=== PATIENT | male | born 1960 | race Caucasian/White ===

== ENCOUNTER 2019-12-20 11:07 | Inpatient (IN) | payer OTHER, SELFPAY ==
[2019-12-20] VITALS (67 sets, daily range): BP systolic 104–177; BP diastolic 51–104; PULSE 66–90; RESP 7–20; TEMP 36.6–38; O2SAT 86–98
--- NOTE | 2019-12-20 11:44 | ED.GENADUL_ITS ---
Discharge Plan Disposition Patient Disposition: [facility]IENT Condition: Improving Discharge Details Chief Complaint: Headache Clinical Impression: Meningitis Primary Care Provider: Fer Forte ED Provider: Noel Jackson Home Meds and New Rx's Prescriptions: No Action No Known Home Meds RF: 0 Medical Decision Making 59-year-old male with no past medical history secondary to not seeing a doctor presents today for evaluation of headache. Patient states that 5 days ago the headache came on somewhat gradually during the evening. He describes it as pressure and pain in his head and the back of his head as well as his neck bilaterally. He has had what he describes as a subjective fever for the last 5 days as well. Pain is made worse with loud noises and movement of his neck. It is gradually worsened over the last 5 days. He denies any history of headache or having headache like this before. He also does admit to mild shortness of breath intermittently. Denies PE risk factors such as recent long car rides, immobilization, recent surgery, prior history of DVT or PE, family history of PE or DVT, morbid obesity, exogenous estrogen and, hemoptysis, history of cancer. The patient denies any headache red flags of thunderclap headache, concerning family history of polycystic kidney disease, Marfan syndrome, Malachi-Danlos syndrome, abdominal aortic aneurysm, aortic dissection, or intracranial aneurysm. He denies any other sick contacts at home. He denies any other modifying factors. He denies any chest tightness, arm neck or shoulder pain, history of cardiac disease. He denies any exertional chest discomfort. He denies any weakness, numbness, or tingling. He denies a vision changes. He denies any profuse vomiting or diarrhea. Physical exam demonstrates no neurologic deficits to speak of but does have vertical nystagmus without horizontal nystagmus which is atypical. Although he has pain and tenderness around the neck and head, he demonstrates no neck stiffness, no signs of nuchal rigidity, and a negative Kernig's and Brudzinski's. Differential seems less likely for intracranial aneurysm or mass with associated of the fever, and meningitis is certainly on the differential however it appears like an atypical presentation as he has a negative Kernig's and Brudzinski's on exam. He did take ibuprofen about 5 hours prior to arrival and is afebrile here. We will perform laboratory work-up, get imaging of the head before we decide on lumbar puncture. Check for other infectious etiologic agents like pneumonia or UTI. On an aside, patient was bitten his left hand by his dog, whose immunizations are up-to-date. His tetanus was updated in 2017. However evaluation of the hand at this time shows no redness swelling sausage shaped digits or signs of cellulitis. 2:42 PM Patient's laboratory work-up has returned, patient does have a white count of 13, left shift, mild hyponatremia, slightly low potassium, magnesium is 1.5. We will correct the magnesium and potassium we have given a liter fluid bolus. ESR and CRP are both elevated. proBNP is 592, does not show evidence of overt heart failure. Procalcitonin is elevated at 2.7. Lumbar puncture was performed and demonstrated notably cloudy fluids, no pus. Symptoms certainly concerning for meningitis. Antibiotics were started in conjunction with this, including vancomycin, 2 g of Rocephin, and 2 g of ampicillin. Urinalysis negative for evidence of infection, chest x-ray negative for evidence of infectious or abnormal etiology. CT scan of the head neck was also prior to lumbar puncture performed and negative for acute process abscess mass or other abnormality. I did contact the hospitalist Dr. Espinosa, after discussion with her she felt that admission would not be appropriate until an MRI is performed to rule out spinal epidural abscess. Influenza test negative. COVID test pending. I did discuss plus or minus on steroids, and at this time through shared decision making process together, will hold off on steroid administration. 5:11 PM Lumbar puncture results demonstrate WBC of 3233, RBCs of 69, glucose is 32, protein is 317, there is evidence of trace gram-negative rods. Less likely to be Neisseria meningitidis then. I did contact the patient's , and discussed the case with her multiple times in detail, including on the need for follow-up for prophylaxis. I offered her to come here to get that ordered follow-up with her PCP. She has now followed up with her PCP by this time of day, and the prescription has been written and she will get it in the morning at the pharmacy. The patient's and patient also did asked that I contact the patient's daughter, I will contact her as well. Still pending MRI results at this time. 6:50 PM MRI results have returned of the thoracic cervical spine and brain, no evidence of spinal epidural abscess. We will reach out to the hospitalist again who is now the night hospitalist and discussed the case with him. Patient remained stable, and ready for admission. 7 PM I have discussed the case with Dr. Moreira, he agrees with the assessment and plan. I have extensively reviewed the treatment plan with the patient. I have addressed all patient concerns at this time. I have also discussed the plan with the admitting physician and they agree with the current assessment and plan and have agreed to assume responsibility for the patient. All parties demonstrate verbal understanding and agreement with our assessment and plan at this time. Patient remained stable here in the ED. FINDINGS: Vertebrae: Limited sequences demonstrate preservation of vertebral body height throughout the thoracic spine with no acute fractures or significant subluxation detected. No significant marrow replacing lesions are detected involving the vertebral bodies or posterior elements of the thoracic spine. Spinal cord: No cord compression or intramedullary signal abnormalities are detected involving the thoracic cord and there is no evidence of epidural abscess or of abnormal cord or meningeal enhancement detected at thoracic levels. Discs/Spinal canal/Neural foramina: No significant disc disease. No significant spinal canal stenosis. Soft tissues: Unremarkable. IMPRESSION: Unremarkable limited enhanced MRI of the thoracic spine demonstrates no evidence of epidural abscess or other abnormal cord or meningeal enhancement at thoracic levels. Thank you for allowing us to participate in the care of your patient. Dictated and Authenticated by: Gaurang Ocasio MD 12/20/2019 6:36 PM Eastern Time ([place] & [place]) FINDINGS: Vertebrae: Limited sequences demonstrate preservation of vertebral body height throughout the cervical spine and no acute fractures or significant subluxations are detected. No significant marrow replacing lesions are detected involving the vertebral bodies or posterior elements at cervical levels. Spinal cord: Motion artifact limits anatomic detail with no cord compression or intramedullary signal abnormalities detected at cervical levels. There is no evidence of epidural abscess or of abnormal cord or meningeal enhancement seen at cervical levels. Discs/Spinal canal/Neural foramina: No posterior disc extrusions identified at cervical levels. No significant spinal canal stenosis or severe cord compression seen at any cerv ical level. Vasculature: Expected flow voids in the vertebral arteries. Soft tissues: Unremarkable. IMPRESSION: Unremarkable limited enhanced MRI of the cervical spine demonstrates no evidence of epidural abscess or other abnormal cord or meningeal enhancement at cervical levels. Thank you for allowing us to participate in the care of your patient. Dictated and Authenticated by: Gaurang Ocasio MD 12/20/2019 6:35 PM Eastern Time ([place] & [place]) FINDINGS: Brain: A few scattered STIR and T2 hyperintensities seen throughout the deep white matter of both cerebral hemispheres could reflect minimal microvascular ischemic change but are nonspecific. Postcontrast images demonstrate linear pial enhancement in the region of the right superior frontal sulcus and in the right central and precentral sulci in the posterior right frontal region (see images 19- 23 from series [id number]). Diffusion-weighted images show no evidence of acute infarct or other abnormal diffusion restriction and no other sites of abnormal intracranial enhancement are detected. Ventricles: Ventricular and cisternal spaces are normal in size and configuration and there is no midline shift or hydrocephalus detected. Bones/joints: Unremarkable. Sinuses: Frontoethmoid mucosal disease noted with other paranasal sinuses clear throughout. Mastoid air cells: Normal as visualized. No mastoid effusion. Orbits: Unremarkable. Soft tissues: Unremarkable. IMPRESSION: 1. Pial enhancement seen within sulci in the region of the right frontal lobe is concerning for meningitis. No intracranial abscess or other abnormal enhancement detected. 2. A few scattered STIR and T2 hyperintensities involving the white matter of both hemispheres could reflect microvascular ischemic changes of mild degree but are nonspecific. Thank you for allowing us to participate in the care of your patient. Dictated and Authenticated by: Gaurang Ocasio MD 12/20/2019 6:23 PM Eastern Time ([place] & [place]) HPI General Date/Time Provider Initiated Documentation: 12/20/19 11:17 . HPI Narrative: 59-year-old male with no past medical history secondary to not seeing a doctor presents today for evaluation of headache. Patient states that 5 days ago the headache came on somewhat gradually during the evening. He describes it as pressure and pain in his head and the back of his head as well as his neck bilaterally. He has had what he describes as a subjective fever for the last 5 days as well. Pain is made worse with loud noises and movement of his neck. It is gradually worsened over the last 5 days. He denies any history of headache or having headache like this before. He also does admit to mild shortness of breath intermittently. Denies PE risk factors such as recent long car rides, immobilization, recent surgery, prior history of DVT or PE, family history of PE or DVT, morbid obesity, exogenous estrogen and, hemoptysis, history of cancer. The patient denies any headache red flags of thunderclap headache, concerning family history of polycystic kidney disease, Marfan syndrome, Malachi-Danlos syndrome, abdominal aortic aneurysm, aortic dissection, or intracranial aneurysm. He denies any other sick contacts at home. He denies any other modifying factors. He denies any chest tightness, arm neck or shoulder pain, history of cardiac disease. He denies any exertional chest discomfort. He denies any weakness, numbness, or tingling. He denies a vision changes. He denies any profuse vomiting or diarrhea. Also of note the patient was bit 5 days ago on the left hand by his own dog. Whose shots and immunizations are up-to-date. That is healed well is only few scabs on the left hand. No redness inflammation or pain otherwise. Related Data Home Medications Medication Instructions Recorded Confirmed Unknown [No Known Home Meds] 08/31/12 12/20/19 Allergies Allergy/AdvReac Type Severity Reaction Status Date / Time No Known Allergies Allergy Unverified 12/20/19 12:01 Review of Systems All systems reviewed & are unremarkable except as noted in HPI and below PFSH Social History Smoking/Tobacco Use Status: Current every day Tobacco Type: cigarettes Drug use: Occasionally Substance use type: marijuana Do you feel safe at home: Yes Do you feel safe in your relationship?: Yes Exam Narrative Exam Narrative: 1.Const: Well-nourished, Well-developed, appearing stated age 2.Eyes: PERRL, no conjunctival injection, and symmetrical lids. Patient does have vertical nystagmus but no horizontal nystagmus. No deviation. 3.ENT: Atraumatic external nose and ears. Moist MM. Neck: Symmetric, trachea midline, No thyromegaly. Patient demonstrates good movement of cervical neck. There is no nuchal rigidity, however the patient does have tenderness in the neck on palpation. No nuchal tenderness. Patient is able to flex the neck without any difficulty but does have pain. Negative Kernig's and Brudzinski sign. 4.CVS: +S1/S2, No murmurs or gallops. Peripheral pulses 2+ and equal in all extremities. Brisk capillary refill in all extremities. 5.RESP: Unlabored respiratory effort. Clear to auscultation bilaterally. No wheezes rales or rhonchi 6.GI: Soft, Nontender/Nondistended, No hepatosplenomegaly. No guarding or rebound. 7.MSK: Normocephalic/Atraumatic, Extremities w/o deformity or ttp No cyanosis or clubbing, Normal movement of all extremities 8.Skin: Warm, Dry. No rashes or lesions. 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 Sensation grossly intact, no focal neurologic deficits. All 6 cardinal planes of vision are fully intact. No horizontal nystagmus but the patient does have vertical nystagmus. The patient demonstrated a normal rlkxop-olrz-pxwsda, good dexterity. There was no evidence of dysdiadochokinesia. Zuzf-nf-ygiq testing was normal. Sensation was intact bilaterally as well as muscle strength bilaterally for all extremities. Patient was able to verbalize butter cup with no slurring, or miss pronunciation. 10.Psych: (AAO) x3. Appropriate mood and affect Course Lab/Test Results Lab/Test Results: 12/20/19 11:41 Nasopharynx Influenza Types A,B Antigen - Pending 12/20/19 11:37 Blood Blood Culture - Pending 12/20/19 11:37 Blood Blood Culture - Pending Procedures Lumbar Puncture Time Out Performed: Yes Patient Position: left lateral decubitus Skin Prep: Povidone-Iodine 1% Local Anesthetic: Lidocaine 1% Amount of anesthesia used (mL): 3 Spinal Needle Gauge: 20G Interspace Used: L4-L5 Fluid Initially Obtained: cloudy Complications: none
[2019-12-20 12:00] LABS: Lactate 1.3 mmol/L (0.6-1.4)
[2019-12-20 12:03] LABS: Abs Immature Grans 0.05 10^3/uL (0.0-0.06); Absolute Basophil Count 0.03 10^3/uL (0.0-0.2); Absolute Lymphocyte Count 1.04 10^3/uL (1.2-3.4); Absolute Neutrophil Count 10.89 10^3/uL (1.2-6.7); Basophils % 0.2; HCT 35.5 % (40.0-50.0); HGB 12.3 g/dL (13.5-17.5); Immature Grans % 0.4; MCH 30.5 pg (27.0-33.0); MCHC 34.6 % (32.0-36.0); MCV 88.1 fL (80-95); MPV 10.9 fL (8.0-11.0); Monocytes % 7.7; Neutrophils % 83.7; Nucleated RBC 0 %; RBC 4.03 10^6/uL (4.36-5.78); RDW 12.5 % (11.8-14.1); RDW-SD 40.2 fL; WBC 13.01 10^3/uL (4.4-10.8)
[2019-12-20] MEDS: ACETAMINOPHEN 1,000 MG/100 ML BTL 400 MG IVPB ×2 (12:12→18:02)
[2019-12-20 12:13] LABS: Diff Comment PLT Morph Reviewed; Platelet Count 94 10^3/uL (130-400); RBC Morphology Normal
[2019-12-20 12:15] LABS: INR 0.9 (0.9-1.1); PTT Activated 28.7 sec (21.0-31.4)
[2019-12-20 12:17] LABS: ALT 40 U/L (16-63); AST 27 U/L (15-37); Albumin 3.1 g/dL (3.4-5.0); Alkaline Phosphatase 72 U/L (46-116); Anion Gap 8.2 mmol/L (3-11); BUN 12 mg/dL (7-18); Bilirubin, Total 0.4 mg/dL (0.2-1.0); CO2 26.8 mmol/L (21.0-32.0); CREATININE 0.76 mg/dL (0.70-1.30); Calcium 8.4 mg/dL (8.5-10.1); Chloride 94 mmol/L (98-107); Glucose 134 mg/dL (74-106); Potassium 3.2 mmol/L (3.5-5.1); Sodium 129 mmol/L (136-145); Total Protein 6.8 g/dL (6.4-8.2)
[2019-12-20 12:26] LABS: C-Reactive Protein 6.98 mg/dL (0.0-0.3); NT-proBNP 592 pg/mL (<300); Troponin I < 0.05 ng/mL (<0.06)
[2019-12-20 12:38] LABS: Magnesium 1.5 mg/dL (1.8-2.4)
[2019-12-20 12:39] LABS: Procalcitonin 2.7 ng/mL
[2019-12-20 12:40] LABS: ESR 27 mm/hr (1-20)
[2019-12-20 12:50] LABS: Bilirubin Negative (Negative); Blood Trace-intact (Negative); Clarity Clear (Clear); Glucose Negative (Negative); Ketones Negative (Negative); Leukocyte Esterase Negative (Negative); Nitrite Negative (Negative); Specific Gravity 1.025 (1.005-1.025)
[2019-12-20] MEDS: POTASSIUM CHLORIDE 20 MEQ/100 ML BAG 50 MEQ IVPB (12:54)
[2019-12-20] MEDS: Ondansetron 4 MG/2 ML VIAL (12:55)
[2019-12-20 13:01] LABS: Epithelial Cells Few HPF (Negative); WBC 0-2 HPF (0-5)
[2019-12-20 13:02] LABS: Bacteria Negative HPF (Negative); C & S Indicated? No; Casts 3-5 Fine Granular LPF (Negative); Crystals Negative HPF (Negative); Mucus Negative (Negative)
[2019-12-20] MEDS: Omnipaque 350 MG/ML 100 ML BTL IJ (13:14)
[2019-12-20] MEDS: Normal Saline - Diluent 50 ML VIAL IV (13:14)
--- NOTE | 2019-12-20 13:25 | DI.RAD_ITS ---
EXAM: XR CHEST 2V PA LATERAL CLINICAL HISTORY: cough, fever TECHNIQUE: 2D digital imaging was performed. COMPARISON: No exams were available for comparison FINDINGS: MEDIASTINUM: Normal. HEART: Normal. PULMONARY VASCULATURE: Normal. LUNGS: Clear. PLEURAL SPACE: No pleural effusion or pneumothorax. BONE:Within normal limits for the patient's age. OTHER FINDINGS:Normal. IMPRESSION: No acute pulmonary findings. DATA REPOSITORY: RADIATION DOSE DELIVERED:
--- NOTE | 2019-12-20 13:25 | DI.CT_ITS ---
EXAM: CT BRAIN NECK CTA CLINICAL HISTORY: fever, headache, vertical nystagmus. TECHNIQUE: Imaging Protocol: Axial CT angiography was performed with multi-slice acquisition and mu lti-planar and/or 3D reconstructions. CONTRAST MATERIAL: Intravenous: Omnipaque 350 Contrast volume:85 mL COMPARISON: No exams were available for comparison FINDINGS: CT Head W/O: Ventricles and Extra axial spaces: Normal in size and morphology for the patient's age. Hemorrhage: None. Cerebral parenchyma: Normal. Midline shift: None. Brainstem/Cerebellum: Normal. Calvarium: Normal. Visualized Paranasal sinuses/Mastoids: Opacification of a few ethmoid air cells. Otherwise, the visu alized paranasal sinuses and mastoid air cells are clear. Soft Tissues: Unremarkable. CTA Brain W: Internal Carotid Arteries: Petrous: Normal. Cavernous: Normal. Cerebral: Normal. Anterior Cerebral Arteries: Right: No aneurysm, occlusion or significant stenosis. Left: No aneurysm, occlusion or significant stenosis. Middle Cerebral Arteries: Right: No aneurysm, occlusion or significant stenosis. Left: No aneurysm, occlusion or significant stenosis. Posterior cerebral Arteries: Right: No aneurysm, occlusion or significant stenosis. Left: No aneurysm, occlusion or significant stenosis. Arises primarily from the posterior communicat ing artery which is a normal variant. Vertebral Arteries: Right: No aneurysm, occlusion or significant stenosis. Left: No aneurysm, occlusion or significant stenosis. Basilar Artery: No aneurysm, occlusion or significant stenosis. CTA Neck W: Common Carotid: Right: No aneurysm, occlusion or significant stenosis. Left: No aneurysm, occlusion or significant stenosis. External Carotid: Right: No aneurysm, occlusion or significant stenosis. Left: No aneurysm, occlusion or significant stenosis. Internal Carotid: Right: No aneurysm, occlusion or significant stenosis. Left: No aneurysm, occlusion or significant stenosis. Vertebral Artery: Right: No aneurysm, occlusion or significant stenosis. Left: No aneurysm, occlusion or significant stenosis. Lung Apices: Normal. Bones: Mild degenerative changes in the cervical spine. Soft Tissues: Normal. IMPRESSION: 1. Normal CTA examination of the [place]. 2. No acute intracranial process. 3. Normal CTA examination of the neck. RADIATION DOSE DELIVERED: 1,176.17mGy.cm Total DLP DATA REPOSITORY: All CT scans at this facility are submitted to the National Radiology Data Registry (NRDR) Dose Index Registry (DIR) with the [employer] (ACR). RADIATION OPTIMIZATION: All CT scans at this facility use at least one of these dose optimization te chniques: automated exposure control; mA and/or kV adjustment per patient size (includes targeted exa ms where dose is matched to clinical indication); or iterative reconstruction.
--- NOTE | 2019-12-20 14:15 | DI.MRI_ITS ---
EXAM: MR BRAIN WO/W CLINICAL HISTORY: neck pain and headache TECHNIQUE: Multiplanar multisequence MRI of the brain was performed. CONTRAST MATERIAL: IV Contrast: 15 ML of Dotarem contrast administered. COMPARISON: CT CT BRAIN NECK CTA from 12/20/2019 FINDINGS: VENTRICLES AND EXTRA AXIAL SPACES: Normal in size and morphology for the patient's age. HEMORRHAGE: None. CEREBRAL PARENCHYMA: No focus of restricted diffusion to suggest acute infarct. No space-occupying le lyudmila identified. There are foci of hyperintense signal on the T2 and FLAIR images in the white matter likely reflecting microvascular ischemic change. MIDLINE SHIFT: None. BRAINSTEM/CEREBELLUM: Normal. CALVARIUM: Normal. ENHANCEMENT: Linear pial enhancement in the region of the right frontal lobe is noted. No focal flui d collection is seen to suggest an abscess. VISUALIZED PARANASAL SINUSES/MASTOIDS: Clear. [place]: Normal flow void. PITUITARY GLAND: Unremarkable. OTHER FINDINGS: IMPRESSION: 1. Pial enhancement seen in the sulci in the right frontal lobe concerning for meningitis. No intrac ranial abscess or other abnormal enhancement is identified. 2. Nonspecific hyperintensities which likely reflecting microvascular ischemic disease. DATA REPOSITORY:
--- NOTE | 2019-12-20 14:25 | DI.MRI_ITS ---
EXAM: MR CERVICAL SPINE WO/W CLINICAL HISTORY: neck pain and headache TECHNIQUE: Multiplanar multisequence MRI of the cervical spine was performed. CONTRAST MATERIAL: IV Contrast: 15 ML of Dotarem contrast administered. COMPARISON: CT CT BRAIN NECK CTA from 12/20/2019 FINDINGS: This is a limited within without MRI of the cervical spine. Patient motion artifact is present. BONES: Vertebral body heights are maintained. Intervertebral disc spaces are normal. Alignment is nor mal. Bone marrow signal intensity is within normal limits. CERVICAL CORD: Craniovertebral junction is unremarkable. The cervical cord is normal size and signal intensity. No lesion is present. SOFT TISSUES: Unremarkable. ENHANCEMENT: No suspicious enhancement identified. No evidence of an epidural abscess or meningeal e nhancement is seen at the cervical levels. C2-3: No disc herniation or bulge is identified. No significant central spinal canal or neural forami nal stenosis. C3-4: No disc herniation or bulge is identified. No significant central spinal canal or neural forami nal stenosis C4-5: No disc herniation or bulge is identified. No significant central spinal canal or neural forami nal stenosis C5-6: No disc herniation or bulge is identified. No significant central spinal canal or neural forami nal stenosis C6-7: No disc herniation or bulge is identified. No significant central spinal canal or neural forami nal stenosis C7-T1: No disc herniation or bulge is identified. No significant central spinal canal or neural ethan inal stenosis IMPRESSION: Unremarkable enhanced MRI of the cervical spine. No evidence of epidural abscess, abnormal cord sign al or meningeal enhancement at the cervical level is seen. DATA REPOSITORY:
[2019-12-20] MEDS: cefTRIAXone 2 GM/50 ML BAG IVPB (14:37)
[2019-12-20 14:49] LABS: Glucose (CSF) 32 mg/dL (40-70)
[2019-12-20 14:51] LABS: Total Protein (CSF) 317 mg/dL (15-45)
[2019-12-20] MEDS: AMPICILLIN SODIUM 2 GM in Normal Saline 100 ML IVPB ×2 (15:19→21:49)
[2019-12-20 15:24] LABS: Troponin I < 0.05 ng/mL (<0.06)
[2019-12-20 15:28] LABS: Clarity Cloudy; Tube # 4; Xanthochromia Absent
[2019-12-20 15:29] LABS: Lymphocytes CSF 1 % (40-80); Monocyte/Macrophage CSF 19 % (15-45)
[2019-12-20 15:30] LABS: Neutrophils CSF 80 % (0-6); RBC 69 /mm3 (0-5)
--- NOTE | 2019-12-20 15:30 | DI.MRI_ITS ---
EXAM: MR THORACIC SPINE WO/W CLINICAL HISTORY: r/o abscess. TECHNIQUE: Multiplanar multisequence MRI of the Thoracic spine was performed. CONTRAST MATERIAL: IV Contrast: 15 mL of Dotarem contrast administered. COMPARISON: CR XR CHEST 2V PA LATERAL from 12/20/2019 FINDINGS: This is a limited pre and postcontrast examination of the thoracic spine. Bones: The vertebral body heights are well maintained. Alignment is satisfactory. The signal characte ristics are unremarkable. Cord: The thoracic cord is normal size and signal intensity. No intrinsic cord lesion is present. The re is no evidence of an epidural abscess or meningeal enhancement detected at the thoracic levels. Discs: No disc herniation or bulge is present. Soft tissues: Normal. There is no evidence of suspicious enhancement. IMPRESSION: Unremarkable enhanced MRI of the thoracic spine. No evidence of an epidural abscess, abnormal cord si gnal or meningeal enhancement at the thoracic level. DATA REPOSITORY:
[2019-12-20 15:31] LABS: WBC 3233 /uL (0-5)
[2019-12-20 15:43] LABS: RBC Tube#1 CSF 114 /mm3 (0-5)
[2019-12-20] MEDS: VANCOMYCIN 1,500 MG in Normal Saline 500 ML 333.3333 MG IVPB (15:45)
--- NOTE | 2019-12-20 16:56 | NUR.NOTE ---
Nursing Note:1150 NS 1 Liter started wo IV VVO Dr. Jackson to Ivania Mckeon RN
--- NOTE | 2019-12-20 17:35 | NUR.NOTE ---
pt is in the MRI anticipate placing him in rm 6 on the return to the ER. he will also be medicated as orderd Nursing Note:
[2019-12-20] MEDS: Gadoterate meglumine 20 ML VIAL 15 ML IVP (17:55)
[2019-12-20] MEDS: Normal Saline Flush 10 ML SYR IVP (17:55)
--- NOTE | 2019-12-20 18:24 | DI.VRAD_ITS ---
Addendum created by Gaurang Ocasio MD on 12/20/2019 6:23:40 PM EDT: THIS REPORT CONTAINS FINDINGS THAT MAY BE CRITICAL TO PATIENT CARE. The findings were verbally communicated via telephone conference with MELODY MOE at 6:23 PM EDT on 12/20/2019. The findings were acknowledged and understood. Initial report created on 12/20/2019 6:23:29 PM EDT: PROCEDURE INFORMATION: Exam: MR Head Without and With Contrast Exam date and time: 12/20/2019 5:57 PM Age: 59 years old Clinical indication: Other: Neck pain, ELIAS; Patient HX: Meningitis TECHNIQUE: Imaging protocol: MR of the head without and with intravenous contrast. 3D rendering (Not supervised by radiologist): MIP and/or 3D reconstructed images were created by the technologist. Contrast material: DOTAREM; Contrast volume: 15 ml; Contrast route: INTRAVENOUS (IV); COMPARISON: CT BRAIN NECK CTA 12/20/2019 1:14 PM FINDINGS: Brain: A few scattered STIR and T2 hyperintensities seen throughout the deep white matter of both cerebral hemispheres could reflect minimal microvascular ischemic change but are nonspecific. Postcontrast images demonstrate linear pial enhancement in the region of the right superior frontal sulcus and in the right central and precentral sulci in the posterior right frontal region (see images 19-23 from series [id number]). Diffusion-weighted images show no evidence of acute infarct or other abnormal diffusion restriction and no other sites of abnormal intracranial enhancement are detected. Ventricles: Ventricular and cisternal spaces are normal in size and configuration and there is no midline shift or hydrocephalus detected. Bones/joints: Unremarkable. Sinuses: Frontoethmoid mucosal disease noted with other paranasal sinuses clear throughout. Mastoid air cells: Normal as visualized. No mastoid effusion. Orbits: Unremarkable. Soft tissues: Unremarkable. IMPRESSION: 1. Pial enhancement seen within sulci in the region of the right frontal lobe is concerning for meningitis. No intracranial abscess or other abnormal enhancement detected. 2. A few scattered STIR and T2 hyperintensities involving the white matter of both hemispheres could reflect microvascular ischemic changes of mild degree but are nonspecific. Dictated and Authenticated by: Gaurang Ocasio MD. Ordering:BETHEL Cohen MD
--- NOTE | 2019-12-20 18:35 | DI.VRAD_ITS ---
PROCEDURE INFORMATION: Exam: MR Cervical Spine Without and With Contrast Exam date and time: 12/20/2019 5:57 PM Age: 59 years old Clinical indication: Other: Neck pain, ELIAS; Patient HX: Meningitis TECHNIQUE: Imaging protocol: Multiplanar magnetic resonance images of the cervical spine without and with intravenous contrast. Contrast material: DOTAREM; Contrast volume: 15 ml; Contrast route: INTRAVENOUS (IV); COMPARISON: CT BRAIN NECK CTA 12/20/2019 1:14 PM FINDINGS: Vertebrae: Limited sequences demonstrate preservation of vertebral body height throughout the cervical spine and no acute fractures or significant subluxations are detected. No significant marrow replacing lesions are detected involving the vertebral bodies or posterior elements at cervical levels. Spinal cord: Motion artifact limits anatomic detail with no cord compression or intramedullary signal abnormalities detected at cervical levels. There is no evidence of epidural abscess or of abnormal cord or meningeal enhancement seen at cervical levels. Discs/Spinal canal/Neural foramina: No posterior disc extrusions identified at cervical levels. No significant spinal canal stenosis or severe cord compression seen at any cervical level. Vasculature: Expected flow voids in the vertebral arteries. Soft tissues: Unremarkable. IMPRESSION: Unremarkable limited enhanced MRI of the cervical spine demonstrates no evidence of epidural abscess or other abnormal cord or meningeal enhancement at cervical levels. Dictated and Authenticated by: Gaurang Ocasio MD. Ordering:BETHEL Cohen MD
--- NOTE | 2019-12-20 18:36 | DI.VRAD_ITS ---
PROCEDURE INFORMATION: Exam: MR Thoracic Spine Without and With Contrast Exam date and time: 12/20/2019 5:57 PM Age: 59 years old Clinical indication: Other: Neck pain, ELIAS, meningitis TECHNIQUE: Imaging protocol: Multiplanar magnetic resonance images of the thoracic spine without and with intravenous contrast. Contrast material: DOTAREM; Contrast volume: 15 ml; Contrast route: INTRAVENOUS (IV); COMPARISON: No relevant prior studies available. FINDINGS: Vertebrae: Limited sequences demonstrate preservation of vertebral body height throughout the thoracic spine with no acute fractures or significant subluxation detected. No significant marrow replacing lesions are detected involving the vertebral bodies or posterior elements of the thoracic spine. Spinal cord: No cord compression or intramedullary signal abnormalities are detected involving the thoracic cord and there is no evidence of epidural abscess or of abnormal cord or meningeal enhancement detected at thoracic levels. Discs/Spinal canal/Neural foramina: No significant disc disease. No significant spinal canal stenosis. Soft tissues: Unremarkable. IMPRESSION: Unremarkable limited enhanced MRI of the thoracic spine demonstrates no evidence of epidural abscess or other abnormal cord or meningeal enhancement at thoracic levels. Dictated and Authenticated by: Gaurang Ocasio MD. Ordering:BETHEL Cohen MD
[2019-12-20] MEDS: Dexamethasone 10 MG/ML VIAL IVP (19:32)
--- NOTE | 2019-12-20 20:27 | HPE_ITS ---
Date of service: 12/20/19 Time of Service: 20:28 Assessment and Plan Assessment and plan (1) Meningitis: Status: Acute Assessment and plan: Continue IV vancomycin at a dose of 15-20 mg/kg IV every 8-12 hours (will request pharmacist to dose and monitor trough levels), ceftriaxone 2 g IV every 12 hours, ampicillin 2 g IV every 4 hours pending final identification and sensitivity of his CSF culture. Based on the Gram stain of gram-negative rods is most likely going to be a Haemophilus influenza however we will continue current empiric treatment pending final identification and sensitivity results. Initially I was inclined to give him corticosteroids based on recommendations from [place] guidelines however patient has already received his initial antibiotic treatment Current guidelines do not recommend corticosteroids once antibiotics have been started. (2) Hyponatremia: Status: Acute Assessment and plan: We will give normal saline IV fluid along with potassium supplementation and magnesium supplementation (3) Hypomagnesemia: Status: Acute Assessment and plan: We will treat with parenteral magnesium recheck levels in the morning. (4) Hypokalemia: Status: Acute Assessment and plan: Replete with IV and oral potassium. Check levels in the morning History of Present Illness History of Present Illness Chief Complaint: headache, fever Narrative: 59-year-old male with no past medical history presents emergency department this morning with complaints of headache and neck ache along with subjective feeling of fevers for the last 5 days. Headache and neck ache started out gradually is gotten progressively worse and is been exacerbated by loud noises or movement of his neck. Evaluation emergency department included a CTA of his head and neck as well as routine labs and subsequently underwent lumbar puncture as well as MRI of the brain and cervical and thoracic spine. In summary he was diagnosed with bacterial meningitis with a Gram stain of his LP showing gram-negative rods. Patient was treated with ceftriaxone 2 g IV along with ampicillin 2 g IV and vancomycin 1.5 g IV. Blood cultures were obtained as well as cerebrospinal fluid cultures were sent and nasal pharyngeal swab for influenza and COVID-19 were obtained. Influenza swab was negative. Blood cultures and CSF cultures are pending at this time as is his COVID-19 test. Routine labs included a white count of 13,000 with a leftward shift including 10,000 neutrophils and an ESR of 27 with a CRP of 6.9. CMP was remarkable for hyponatremia with a sodium of 129 a potassium level 3.2 and a magnesium level 1.5. LFTs were normal. BUN and creatinine were normal at 12 and 0.76. Procalcitonin level was high at 2.7. CSF fluid was cloudy and colorless with 3200 white cells, 114 RBCs on the first sample and 69 RBCs on the final sample with a low CSF glucose of 32 and a high CSF protein of 317. Gram stain of the CSF showed many white blood cells and initially was reported as no bacteria seen but modified to indicate rare gram-negative rods. Subsequent MRI imaging of the brain cervical and thoracic spine was obtained in the MRI of the cervical and thoracic spine were unremarkable whereas the MRI of the brain showed enhancement of the toshia matter within the sulci in the region of the frontal right lobe concerning for meningitis but no intracranial abscess was seen. There are few scattered hyperintensities involving the white matter of both hemispheres that are nonspecific but possibly reflecting microvascular ischemic changes. Patient is now admitted for empiric treatment of bacterial meningitis. Reportedly there were no ill contacts. His was notified of his diagnosis by the emergency room attending who is document that his is received prophylactic antibiotic through her PCP. Review of Systems Constitutional Constitutional: Reports body ache(s), Reports chills, Reports fever(s) and Reports headache(s) Eyes Eyes: Reports other (Photophobia) ENT Ears, Nose, Mouth, and Throat: Reports headache(s) Cardiovascular Cardiovascular: Reports system reviewed and no additional complaints, except as documented Respiratory Respiratory: Reports system reviewed and no additional complaints, except as documented Gastrointestinal Gastrointestinal: Reports diarrhea Genitourinary Genitourinary: Reports system reviewed and no additional complaints, except as documented Musculoskeletal Musculoskeletal: Reports myalgias and Reports other (Neck pain) Integumentary/Breasts Skin/Breast: Reports system reviewed and no additional complaints, except as documented Neurologic Neurologic: Reports headache(s) Endocrine Endocrine: Reports system reviewed and no additional complaints, except as documented Hematologic/Lymphatic Hematologic/Lymphatic: Reports system reviewed and no additional complaints, except as documented Allergic/Immunologic Allergic/Immunologic: Reports system reviewed and no additional complaints, except as documented [facility] Social History Smoking/Tobacco Use Status: Current every day Tobacco Type: cigarettes Drug use: Occasionally Substance use type: marijuana Do you feel safe at home: Yes Do you feel safe in your relationship?: Yes Meds Home Medications and Allergies Home Medications Medication Instructions Recorded Confirmed Type Unknown [No Known Home Meds] 08/31/12 12/20/19 History Allergies Allergy/AdvReac Type Severity Reaction Status Date / Time No Known Allergies Allergy Unverified 12/20/19 12:01 Exam Narrative Exam Narrative: Middle-age male who appears to be toxic, alert and oriented x3 Neck is supple but tender with pain on range of motion testing, no cervical adenopathy no meningismus Lungs are clear to auscultation Heart is regular rate and rhythm without murmur rub or gallop Abdomen soft normal active bowel sounds no palpable masses no bruits Upper extremities left hand with a couple small red punctate mcdonald from where his dog bit him last week however there is no erythema or induration and no purulent drainage over the mcdonald. Lower extremities without peripheral cyanosis or edema Neurologic exam he is alert and oriented x3 no facial asymmetry normal facial mimetic muscle movement. Extraocular motions intact no nystagmus pupils equally round and reactive to light and accommodation Normal range of motion strength in upper and lower extremities. No cervical tenderness with straight leg raising Results Labs Result diagrams: 12/20/19 11:40 12/20/19 11:40 Labs: Laboratory Results - last 24 hr 12/20/19 12/20/19 12/20/19 11:40 11:40 11:40 WBC 13.01 H RBC 4.03 L Hgb 12.3 L Hct 35.5 L MCV 88.1 MCH 30.5 MCHC 34.6 RDW 12.5 Plt Count 94 L MPV 10.9 Immature Gran % 0.4 Neutrophils % 83.7 Lymphocytes % 8.0 Monocytes % 7.7 Eosinophils % 0.0 Basophils % 0.2 Nucleated RBC % 0 Absolute Neutrophils 10.89 H Absolute Lymphocytes 1.04 L Absolute Monocytes 1.00 H Absolute Eosinophils 0.00 Absolute Basophils 0.03 RBC Morphology Normal Xanthochromia ESR 27 H PT INR APTT VBG Lactate 1.3 Sodium Potassium Chloride Carbon Dioxide Anion Gap BUN Creatinine Estimated GFR/1.73 m2 Glucose Calcium Magnesium Total Bilirubin AST ALT Alkaline Phosphatase Troponin I < 0.05 C-Reactive Protein 6.98 H NT-Pro-B Natriuret Pep 592 H Total Protein Albumin Procalcitonin 2.7 Urine Color Urine Clarity Urine pH Ur Specific [place] Urine Protein Urine Ketones Urine Blood Urine Nitrite Urine Bilirubin Urine Urobilinogen Ur Leukocyte Esterase Urine RBC Urine WBC Ur Epithelial Cells Urine Crystals Urine Bacteria Urine Casts Urine Mucus Ur Culture Indicated? Urine Glucose CSF Tube Number CSF Color CSF Clarity CSF WBC CSF RBC CSF RBC (1) CSF Neutrophils % CSF Lymphocytes % CSF Monos/Macrophage % CSF Glucose CSF Total Protein 12/20/19 12/20/19 12/20/19 11:40 11:40 11:40 WBC RBC Hgb Hct MCV MCH MCHC RDW Plt Count MPV Immature Gran % Neutrophils % Lymphocytes % Monocytes % Eosinophils % Basophils % Nucleated RBC % Absolute Neutrophils Absolute Lymphocytes Absolute Monocytes Absolute Eosinophils Absolute Basophils RBC Morphology Xanthochromia ESR PT 9.0 L INR 0.9 APTT 28.7 VBG Lactate Sodium 129 L Potassium 3.2 L Chloride 94 L Carbon Dioxide 26.8 Anion Gap 8.2 BUN 12 Creatinine 0.76 Estimated GFR/1.73 m2 >= 60.00 Glucose 134 H Calcium 8.4 L Magnesium 1.5 L Total Bilirubin 0.4 AST 27 ALT 40 Alkaline Phosphatase 72 Troponin I C-Reactive Protein NT-Pro-B Natriuret Pep Total Protein 6.8 Albumin 3.1 L Procalcitonin Urine Color Urine Clarity Urine pH Ur Specific [place] Urine Protein Urine Ketones Urine Blood Urine Nitrite Urine Bilirubin Urine Urobilinogen Ur Leukocyte Esterase Urine RBC Urine WBC Ur Epithelial Cells Urine Crystals Urine Bacteria Urine Casts Urine Mucus Ur Culture Indicated? Urine Glucose CSF Tube Number CSF Color CSF Clarity CSF WBC CSF RBC CSF RBC (1) CSF Neutrophils % CSF Lymphocytes % CSF Monos/Macrophage % CSF Glucose CSF Total Protein 12/20/19 12/20/19 12/20/19 12:25 14:10 14:10 WBC RBC Hgb Hct MCV MCH MCHC RDW Plt Count MPV Immature Gran % Neutrophils % Lymphocytes % Monocytes % Eosinophils % Basophils % Nucleated RBC % Absolute Neutrophils Absolute Lymphocytes Absolute Monocytes Absolute Eosinophils Absolute Basophils RBC Morphology Xanthochromia Absent ESR PT INR APTT VBG Lactate Sodium Potassium Chloride Carbon Dioxide Anion Gap BUN Creatinine Estimated GFR/1.73 m2 Glucose Calcium Magnesium Total Bilirubin AST ALT Alkaline Phosphatase Troponin I C-Reactive Protein NT-Pro-B Natriuret Pep Total Protein Albumin Procalcitonin Urine Color Yellow Urine Clarity Clear Urine pH 6.0 Ur Specific [place] 1.025 Urine Protein 100 H Urine Ketones Negative Urine Blood Trace-intact H Urine Nitrite Negative Urine Bilirubin Negative Urine Urobilinogen 1.0 H Ur Leukocyte Esterase Negative Urine RBC 3-5 H Urine WBC 0-2 Ur Epithelial Cells Few Urine Crystals Negative Urine Bacteria Negative Urine Casts 3-5 fine granular Urine Mucus Negative Ur Culture Indicated? No Urine Glucose Negative CSF Tube Number 4 CSF Color Colorless CSF Clarity Cloudy CSF WBC 3233 H* CSF RBC 69 H CSF RBC (1) 114 H CSF Neutrophils % 80 H CSF Lymphocytes % 1 L CSF Monos/Macrophage % 19 CSF Glucose 32 L CSF Total Protein 12/20/19 12/20/19 14:10 15:00 WBC RBC Hgb Hct MCV MCH MCHC RDW Plt Count MPV Immature Gran % Neutrophils % Lymphocytes % Monocytes % Eosinophils % Basophils % Nucleated RBC % Absolute Neutrophils Absolute Lymphocytes Absolute Monocytes Absolute Eosinophils Absolute Basophils RBC Morphology Xanthochromia ESR PT INR APTT VBG Lactate Sodium Potassium Chloride Carbon Dioxide Anion Gap BUN Creatinine Estimated GFR/1.73 m2 Glucose Calcium Magnesium Total Bilirubin AST ALT Alkaline Phosphatase Troponin I < 0.05 C-Reactive Protein NT-Pro-B Natriuret Pep Total Protein Albumin Procalcitonin Urine Color Urine Clarity Urine pH Ur Specific [place] Urine Protein Urine Ketones Urine Blood Urine Nitrite Urine Bilirubin Urine Urobilinogen Ur Leukocyte Esterase Urine RBC Urine WBC Ur Epithelial Cells Urine Crystals Urine Bacteria Urine Casts Urine Mucus Ur Culture Indicated? Urine Glucose CSF Tube Number CSF Color CSF Clarity CSF WBC CSF RBC CSF RBC (1) CSF Neutrophils % CSF Lymphocytes % CSF Monos/Macrophage % CSF Glucose CSF Total Protein 317 H Last Vital Signs Temp 36.6 C 12/20/19 19:47 Pulse 74 12/20/19 19:47 Resp 16 12/20/19 19:47 BP 130/82 12/20/19 19:47 Pulse Ox 95 12/20/19 19:47 COVID-19 Screening Have you,or household,traveled outside [place] in last 14 days?: No Had IN PERSON contact w/suspected or confirmed C-19 person: No
[2019-12-20] MEDS: POTASSIUM CHLORIDE/0.9% NACL 1,000 ML 150 MEQ IV (20:58)
[2019-12-20] MEDS: Potassium Chloride 20 MEQ TABCR 40 MEQ PO (21:22)
[2019-12-20] MEDS: MAGNESIUM SULFATE 4 GM/100 ML BAG IVPB (21:27)
[2019-12-20] MEDS: HYDROmorphone 2 MG/ML VIAL IVP ×2 (21:47→23:42)
[2019-12-20] MEDS: Ondansetron 4 MG/2 ML VIAL IVP (21:47)
[2019-12-20] MEDS: Acetaminophen 325 MG TAB PO (23:42)
[2019-12-21] VITALS (19 sets, daily range): BP systolic 114–167; BP diastolic 69–103; PULSE 63–96; RESP 12–18; TEMP 36.5–38; O2SAT 93–98
[2019-12-21] MEDS: Nicotine 21 MG/24 HR PATCH TD (00:44)
[2019-12-21] MEDS: Benzonatate 200 MG CAP PO (00:44)
[2019-12-21] MEDS: AMPICILLIN SODIUM 2 GM in Normal Saline 100 ML IVPB ×3 (00:54→10:14)
[2019-12-21] MEDS: HYDROmorphone 2 MG/ML VIAL IVP ×6 (02:07→21:07)
[2019-12-21] MEDS: VANCOMYCIN 1,250 MG in Normal Saline 250 ML 166.667 MG IV ×2 (04:24→11:57)
[2019-12-21] MEDS: POTASSIUM CHLORIDE/0.9% NACL 1,000 ML 150 MEQ IV (04:25)
[2019-12-21 07:19] LABS: Anion Gap 5.8 mmol/L (3-11); BUN 8 mg/dL (7-18); CO2 28.2 mmol/L (21.0-32.0); CREATININE 0.69 mg/dL (0.70-1.30); Calcium 7.7 mg/dL (8.5-10.1); Chloride 99 mmol/L (98-107); Glucose 151 mg/dL (74-106); Magnesium 2.4 mg/dL (1.8-2.4); Potassium 4.3 mmol/L (3.5-5.1); Sodium 133 mmol/L (136-145)
[2019-12-21 07:35] LABS: Abs Immature Grans 0.11 10^3/uL (0.0-0.06); Absolute Basophil Count 0.05 10^3/uL (0.0-0.2); Absolute Eosinophil Count 0.02 10^3/uL (0.0-0.7); Absolute Neutrophil Count 15.13 10^3/uL (1.2-6.7); Basophils % 0.3; Eosinophils % 0.1; HCT 32.5 % (40.0-50.0); HGB 11.4 g/dL (13.5-17.5); Immature Grans % 0.6; Lymphocytes % 7.9; MCH 30.8 pg (27.0-33.0); MCHC 35.1 % (32.0-36.0); MCV 87.8 fL (80-95); MPV 11.5 fL (8.0-11.0); Monocytes % 8.3; Neutrophils % 82.8; Nucleated RBC 0 %; RDW-SD 41.7 fL; WBC 18.27 10^3/uL (4.4-10.8)
[2019-12-21 08:01] LABS: Absolute Lymphocyte Count 1.44 10^3/uL (1.2-3.4); Absolute Monocyte Count 1.52 10^3/uL (0.1-0.8)
--- NOTE | 2019-12-21 08:27 | W.PM.PROGNOT ---
Date of Service Date of service: 12/21/19 Time of Service: 13:34 Assessment and Plan Assessment and plan (1) Sepsis: Status: Acute Assessment and plan: Due to meningitis. Blood cultures pending. Discussed with microbiology - the statement about GNR on CSF gram stain was retracted. They do see a ruthy on hematology slides, but they cannot comment on whether the ruthy is gram positive or gram negative. Given the dog bite on left hand, [place] [facility] [place] pasteurella and capnocytophaga spp need to be considered in addition to lysteria, etc. Recommendations were made to adjust antibiotics to vancomycin and meropenem. Await blood and CSF cultures. We will continue to trend CRP/procalcitonin. He remains in PUI status. (2) Meningitis: Status: Acute Assessment and plan: As above. (3) Dog bite of left hand: Status: Acute Assessment and plan: No evidence of cellulitis. As above (4) Thrombocytopenia: Status: Chronic Assessment and plan: ?TTP due to infection vs liver disease. Once off precautions, would benefit from liver imaging. He does drink. (5) Hyperglycemia: Status: Acute Assessment and plan: Fasting, but did receive a dose of decadron overnight. Check A1C. (6) Hyponatremia: Status: Acute Assessment and plan: Continue NS (7) Hypomagnesemia: Status: Resolved Assessment and plan: Recheck in am (8) Hypokalemia: Status: Resolved Assessment and plan: Recheck in am. (9) Alcohol abuse: Status: Chronic Assessment and plan: Place on CIWA and start thiamine, vitamins. prn lorazepam written. (10) DVT prophylaxis: Status: Acute Assessment and plan: TEDs/SCDs (11) Discharge planning issues: Status: Acute Assessment and plan: Full code Continues to require ICU. Total Critical Care Time 1 hour. Subjective Subjective Interval history since last seen: Mr Mckenzie states that he feels a little better. He IS having visual changes (tiles moving), photophobia, and phonophobia. He denies dizziness, chest pain, shortness of breath. He has been nauseated, but the medications are helping. Head and neck still hurt. He told me that he got the dog bite on his left hand about 24 hours prior to symptoms starting. He states the left hand feels pretty good, but that the hand did get really chewed on. He drinks 4 drinks 4 times a week. Tmax 38.0. SBP in 160-70s while in pain. Tired. In pain today. Getting dilaudid for pain. 1000 cc out overnight. Exam Narrative Exam Narrative: General: Very pleasant middle-aged male, who is visibly uncomfortable with the lights and noise HEENT: EOMI, MMM Heart: RRR, no m/r/g Lungs: CTAB Abdomen: soft, nontender, nondistended Extremities: no e/c/c BLEs Objective Objective Clinical Data: Abnormal lab results 12/20/19 12/20/19 12/20/19 Range/Units 11:40 11:40 11:40 WBC 13.01 H (4.4-10.8) 10^3/uL RBC 4.03 L (4.36-5.78) 10^6/uL Hgb 12.3 L (13.5-17.5) g/dL Hct 35.5 L (40.0-50.0) % Plt Count 94 L (130-400) 10^3/uL Absolute Neutrophils 10.89 H (1.2-6.7) 10^3/uL Absolute Lymphocytes 1.04 L (1.2-3.4) 10^3/uL Absolute Monocytes 1.00 H (0.1-0.8) 10^3/uL ESR 27 H (1-20) mm/hr PT 9.0 L (9.3-11.0) sec Sodium (136-145) mmol/L Potassium (3.5-5.1) mmol/L Chloride (98-107) mmol/L Creatinine (0.70-1.30) mg/dL Glucose (74-106) mg/dL Calcium (8.5-10.1) mg/dL Magnesium (1.8-2.4) mg/dL C-Reactive Protein 6.98 H (0.0-0.3) mg/dL NT-Pro-B Natriuret Pep 592 H (<300) pg/mL Albumin (3.4-5.0) g/dL Urine Protein (Negative) mg/dL Urine Blood (Negative) Urine Urobilinogen (Up TO 0.2) EU/dL Urine RBC (0-2) HPF CSF WBC (0-5) /uL CSF RBC (0-5) /mm3 CSF RBC (1) (0-5) /mm3 CSF Neutrophils % (0-6) % CSF Lymphocytes % (40-80) % CSF Glucose (40-70) mg/dL CSF Total Protein (15-45) mg/dL 12/20/19 12/20/19 12/20/19 Range/Units 11:40 11:40 12:25 WBC (4.4-10.8) 10^3/uL RBC (4.36-5.78) 10^6/uL Hgb (13.5-17.5) g/dL Hct (40.0-50.0) % Plt Count (130-400) 10^3/uL Absolute Neutrophils (1.2-6.7) 10^3/uL Absolute Lymphocytes (1.2-3.4) 10^3/uL Absolute Monocytes (0.1-0.8) 10^3/uL ESR (1-20) mm/hr PT (9.3-11.0) sec Sodium 129 L (136-145) mmol/L Potassium 3.2 L (3.5-5.1) mmol/L Chloride 94 L (98-107) mmol/L Creatinine (0.70-1.30) mg/dL Glucose 134 H (74-106) mg/dL Calcium 8.4 L (8.5-10.1) mg/dL Magnesium 1.5 L (1.8-2.4) mg/dL C-Reactive Protein (0.0-0.3) mg/dL NT-Pro-B Natriuret Pep (<300) pg/mL Albumin 3.1 L (3.4-5.0) g/dL Urine Protein 100 H (Negative) mg/dL Urine Blood Trace-intact H (Negative) Urine Urobilinogen 1.0 H (Up TO 0.2) EU/dL Urine RBC 3-5 H (0-2) HPF CSF WBC (0-5) /uL CSF RBC (0-5) /mm3 CSF RBC (1) (0-5) /mm3 CSF Neutrophils % (0-6) % CSF Lymphocytes % (40-80) % CSF Glucose (40-70) mg/dL CSF Total Protein (15-45) mg/dL 12/20/19 12/20/19 12/20/19 Range/Units 14:10 14:10 14:10 WBC (4.4-10.8) 10^3/uL RBC (4.36-5.78) 10^6/uL Hgb (13.5-17.5) g/dL Hct (40.0-50.0) % Plt Count (130-400) 10^3/uL Absolute Neutrophils (1.2-6.7) 10^3/uL Absolute Lymphocytes (1.2-3.4) 10^3/uL Absolute Monocytes (0.1-0.8) 10^3/uL ESR (1-20) mm/hr PT (9.3-11.0) sec Sodium (136-145) mmol/L Potassium (3.5-5.1) mmol/L Chloride (98-107) mmol/L Creatinine (0.70-1.30) mg/dL Glucose (74-106) mg/dL Calcium (8.5-10.1) mg/dL Magnesium (1.8-2.4) mg/dL C-Reactive Protein (0.0-0.3) mg/dL NT-Pro-B Natriuret Pep (<300) pg/mL Albumin (3.4-5.0) g/dL Urine Protein (Negative) mg/dL Urine Blood (Negative) Urine Urobilinogen (Up TO 0.2) EU/dL Urine RBC (0-2) HPF CSF WBC 3233 H* (0-5) /uL CSF RBC 69 H (0-5) /mm3 CSF RBC (1) 114 H (0-5) /mm3 CSF Neutrophils % 80 H (0-6) % CSF Lymphocytes % 1 L (40-80) % CSF Glucose 32 L (40-70) mg/dL CSF Total Protein 317 H (15-45) mg/dL 12/21/19 Range/Units 06:10 WBC (4.4-10.8) 10^3/uL RBC (4.36-5.78) 10^6/uL Hgb (13.5-17.5) g/dL Hct (40.0-50.0) % Plt Count (130-400) 10^3/uL Absolute Neutrophils (1.2-6.7) 10^3/uL Absolute Lymphocytes (1.2-3.4) 10^3/uL Absolute Monocytes (0.1-0.8) 10^3/uL ESR (1-20) mm/hr PT (9.3-11.0) sec Sodium 133 L (136-145) mmol/L Potassium (3.5-5.1) mmol/L Chloride (98-107) mmol/L Creatinine 0.69 L (0.70-1.30) mg/dL Glucose 151 H (74-106) mg/dL Calcium 7.7 L (8.5-10.1) mg/dL Magnesium (1.8-2.4) mg/dL C-Reactive Protein (0.0-0.3) mg/dL NT-Pro-B Natriuret Pep (<300) pg/mL Albumin (3.4-5.0) g/dL Urine Protein (Negative) mg/dL Urine Blood (Negative) Urine Urobilinogen (Up TO 0.2) EU/dL Urine RBC (0-2) HPF CSF WBC (0-5) /uL CSF RBC (0-5) /mm3 CSF RBC (1) (0-5) /mm3 CSF Neutrophils % (0-6) % CSF Lymphocytes % (40-80) % CSF Glucose (40-70) mg/dL CSF Total Protein (15-45) mg/dL Vital Signs Temperature 36.8 C 12/21/19 04:56 Temperature Source Temporal Artery Scan 12/21/19 04:56 Pulse 67 12/21/19 04:32 Pulse 72 12/20/19 22:20 Respiratory Rate 12 12/21/19 00:16 Respiratory Effort 12/21/19 04:56 Respiratory Depth Normal 12/21/19 04:56 Respiratory Pattern Normal 12/21/19 04:56 Blood Pressure 156/88 H 12/21/19 04:32 Blood Pressure Mean 105 12/21/19 04:32 Blood Pressure Position Supine 12/20/19 11:25 Pulse Oximetry 96 12/21/19 04:31 Oxygen Delivery Method Room Air 12/21/19 00:16 Oxygen Flow Rate 0 12/21/19 00:16 Pain Level 8 12/21/19 06:40 Intake & Output 12/20/19 12/20/19 12/21/19 11:59 23:59 11:59 Intake Total 1050 / 1050 1700 / 1700 Output Total 1500 / 1500 550 / 550 Balance -450 / -450 1150 / 1150 Weight 74.843 kg 74.843 kg Intake: IV 1050 / 1050 1100 / 1100 Oral 600 / 600 Output: Urine 1500 / 1500 550 / 550 Other: Urine Color Dark Hanane Dark Hanane Urine Appearance Clear Clear Urine Odor None Voiding Methods Urinal Urinal Laboratory Results WBC 13.01 10^3/uL (4.4-10.8) H 12/20/19 11:40 RBC 4.03 10^6/uL (4.36-5.78) L 12/20/19 11:40 Hgb 12.3 g/dL (13.5-17.5) L 12/20/19 11:40 Hct 35.5 % (40.0-50.0) L 12/20/19 11:40 MCV 88.1 fL (80-95) 12/20/19 11:40 MCH 30.5 pg (27.0-33.0) 12/20/19 11:40 MCHC 34.6 % (32.0-36.0) 12/20/19 11:40 RDW 12.5 % (11.8-14.1) 12/20/19 11:40 Plt Count 94 10^3/uL (130-400) L 12/20/19 11:40 MPV 10.9 fL (8.0-11.0) 12/20/19 11:40 Immature Gran % 0.4 12/20/19 11:40 Neutrophils % 83.7 12/20/19 11:40 Lymphocytes % 8.0 12/20/19 11:40 Monocytes % 7.7 12/20/19 11:40 Eosinophils % 0.0 12/20/19 11:40 Basophils % 0.2 12/20/19 11:40 Nucleated RBC % 0 % 12/20/19 11:40 Absolute Neutrophils 10.89 10^3/uL (1.2-6.7) H 12/20/19 11:40 Absolute Lymphocytes 1.04 10^3/uL (1.2-3.4) L 12/20/19 11:40 Absolute Monocytes 1.00 10^3/uL (0.1-0.8) H 12/20/19 11:40 Absolute Eosinophils 0.00 10^3/uL (0.0-0.7) 12/20/19 11:40 Absolute Basophils 0.03 10^3/uL (0.0-0.2) 12/20/19 11:40 RBC Morphology Normal 12/20/19 11:40 Xanthochromia Absent 12/20/19 14:10 ESR 27 mm/hr (1-20) H 12/20/19 11:40 PT 9.0 sec (9.3-11.0) L 12/20/19 11:40 INR 0.9 (0.9-1.1) 12/20/19 11:40 APTT 28.7 sec (21.0-31.4) 12/20/19 11:40 VBG Lactate 1.3 mmol/L (0.6-1.4) 12/20/19 11:40 Sodium 133 mmol/L (136-145) L 12/21/19 06:10 Potassium 4.3 mmol/L (3.5-5.1) D 12/21/19 06:10 Chloride 99 mmol/L (98-107) 12/21/19 06:10 Carbon Dioxide 28.2 mmol/L (21.0-32.0) 12/21/19 06:10 Anion Gap 5.8 mmol/L (3-11) 12/21/19 06:10 BUN 8 mg/dL (7-18) 12/21/19 06:10 Creatinine 0.69 mg/dL (0.70-1.30) L 12/21/19 06:10 Estimated GFR/1.73 m2 >= 60.00 (mL/min/1.73m2) 12/21/19 06:10 Glucose 151 mg/dL (74-106) H 12/21/19 06:10 Calcium 7.7 mg/dL (8.5-10.1) L 12/21/19 06:10 Magnesium 2.4 mg/dL (1.8-2.4) 12/21/19 06:10 Total Bilirubin 0.4 mg/dL (0.2-1.0) 12/20/19 11:40 AST 27 U/L (15-37) 12/20/19 11:40 ALT 40 U/L (16-63) 12/20/19 11:40 Alkaline Phosphatase 72 U/L (46-116) 12/20/19 11:40 Troponin I < 0.05 ng/mL (<0.06) 12/20/19 15:00 C-Reactive Protein 6.98 mg/dL (0.0-0.3) H 12/20/19 11:40 NT-Pro-B Natriuret Pep 592 pg/mL (<300) H 12/20/19 11:40 Total Protein 6.8 g/dL (6.4-8.2) 12/20/19 11:40 Albumin 3.1 g/dL (3.4-5.0) L 12/20/19 11:40 Procalcitonin 2.7 ng/mL 12/20/19 11:40 Urine Color Yellow (Yellow) 12/20/19 12:25 Urine Clarity Clear (Clear) 12/20/19 12:25 Urine pH 6.0 (5-8) 12/20/19 12:25 Ur Specific [place] 1.025 (1.005-1.025) 12/20/19 12:25 Urine Protein 100 mg/dL (Negative) H 12/20/19 12:25 Urine Ketones Negative mg/dL (Negative) 12/20/19 12:25 Urine Blood Trace-intact (Negative) H 12/20/19 12:25 Urine Nitrite Negative (Negative) 12/20/19 12:25 Urine Bilirubin Negative (Negative) 12/20/19 12:25 Urine Urobilinogen 1.0 EU/dL (Up TO 0.2) H 12/20/19 12:25 Ur Leukocyte Esterase Negative (Negative) 12/20/19 12:25 Urine RBC 3-5 HPF (0-2) H 12/20/19 12:25 Urine WBC 0-2 HPF (0-5) 12/20/19 12:25 Ur Epithelial Cells Few HPF (Negative) 12/20/19 12:25 Urine Crystals Negative HPF (Negative) 12/20/19 12:25 Urine Bacteria Negative HPF (Negative) 12/20/19 12:25 Urine Casts 3-5 fine granular LPF (Negative) 12/20/19 12:25 Urine Mucus Negative (Negative) 12/20/19 12:25 Ur Culture Indicated? No 12/20/19 12:25 Urine Glucose Negative mg/dL (Negative) 12/20/19 12:25 CSF Tube Number 4 12/20/19 14:10 CSF Color Colorless 12/20/19 14:10 CSF Clarity Cloudy 12/20/19 14:10 CSF WBC 3233 /uL (0-5) H* 12/20/19 14:10 CSF RBC 69 /mm3 (0-5) H 12/20/19 14:10 CSF RBC (1) 114 /mm3 (0-5) H 12/20/19 14:10 CSF Neutrophils % 80 % (0-6) H 12/20/19 14:10 CSF Lymphocytes % 1 % (40-80) L 12/20/19 14:10 CSF Monos/Macrophage % 19 % (15-45) 12/20/19 14:10 CSF Glucose 32 mg/dL (40-70) L 12/20/19 14:10 CSF Total Protein 317 mg/dL (15-45) H 12/20/19 14:10
[2019-12-21 09:01] LABS: Diff Comment Diff Reviewed; RBC Morphology Normal
[2019-12-21 09:02] LABS: Platelet Count 82 10^3/uL (130-400)
[2019-12-21 10:04] LABS: C-Reactive Protein 19.87 mg/dL (0.0-0.3)
[2019-12-21] MEDS: Acetaminophen 325 MG TAB PO (10:13)
[2019-12-21] MEDS: Normal Saline Flush 10 ML SYR IVP ×5 (10:15→23:45)
[2019-12-21] MEDS: Normal Saline 1,000 ML 125 ML IV ×2 (10:15→19:28)
[2019-12-21] MEDS: Ondansetron 4 MG/2 ML VIAL IVP ×2 (10:21→18:01)
[2019-12-21 10:25] LABS: Differential CSF: Performed
--- NOTE | 2019-12-21 11:09 | PHA.REVIEW ---
Pharmacy Admission Review - Admission Clinical Review (Last Reviewed 12/20/19 @ 20:40 by Navneet Rockwell) Hypokalemia (Acute) Hypomagnesemia (Acute) Hyponatremia (Acute) Meningitis (Acute) No Known Allergies Allergy (Unverified 12/20/19 12:01) Height 5 ft 7 in Weight 74.843 kg - Renal Dosing Renal Dosing: BUN 8 mg/dL (7-18) 12/21/19 06:10 Creatinine 0.69 mg/dL (0.70-1.30) L 12/21/19 06:10 Medications needing adjustments: Reviewed (CrCl ~92ml/min) - Anticoagulation Anticoagulation: Hgb 11.4 g/dL (13.5-17.5) L 12/21/19 06:10 Hct 32.5 % (40.0-50.0) L 12/21/19 06:10 Plt Count 82 10^3/uL (130-400) L 12/21/19 06:10 INR 0.9 (0.9-1.1) 12/20/19 11:40 Creatinine 0.69 mg/dL (0.70-1.30) L 12/21/19 06:10 DVT Prohphylaxis: N/A Therapeutic Anticoagulation: N/A - Opiate Usage Evaluate Pain Scale/Pains Meds: Reviewed Scheduled Bowel Reg ordered if on Opiates?: Yes (PRN orders) - Relevant Labs ESR 27 mm/hr (1-20) H 12/20/19 11:40 Sodium 133 mmol/L (136-145) L 12/21/19 06:10 Potassium 4.3 mmol/L (3.5-5.1) D 12/21/19 06:10 Chloride 99 mmol/L (98-107) 12/21/19 06:10 Magnesium 2.4 mg/dL (1.8-2.4) 12/21/19 06:10 C-Reactive Protein 19.87 mg/dL (0.0-0.3) H 12/21/19 06:10 Electrolytes, C-Reactive P, ESR: Reviewed (K+ has increased from 3.2 to 4.3; IV fluids have been changed from KCl+NS to just NS, confirmed with ICU that everything is coming across the MAR correctly) - DM Control DM Control: Glucose 151 mg/dL (74-106) H 12/21/19 06:10 Insulin Dosing: Reviewed - Heart Failure/DC Heart Failure/DC: Troponin I < 0.05 ng/mL (<0.06) 12/20/19 15:00 NT-Pro-B Natriuret Pep 592 pg/mL (<300) H 12/20/19 11:40 EF%, MOISES's, B-Blockers, Diuretics: Reviewed - BP Control BP Control: Blood Pressure 126/69 Blood Pressure 156/88 Blood Pressure 167/103 Blood Pressure 163/93 If elevated: Reviewed (Elevated BP due to pain) - Qtc Review If Elevated: N/A - IV to PO Switch IV Medications: Reviewed - Home Meds Home Med List reviewed: N/A - Current meds Current Medication Order Review: Intervened (Adjusted vancomycin per pharmacy protocol -- changed from q12h to q8h to yield predicted SS trough of 14.5)
--- NOTE | 2019-12-21 12:33 | PDOC.CMIN ---
- If Service Date Differs Date of service: 12/21/19 Time of Service: 12:33 Care Management Initial Assess REASON FOR HOSPITALIZATION:: Meningitis PAST MEDICAL HISTORY/PAST SURGICAL HISTORY:: None documented PREVIOUS FUNCTIONAL STATUS/SOCIAL/FAMILY SUPPORTS:: Garry lives in [place] with his Carin. CURRENT FUNCTIONAL STATUS:: Per nursing, Garry is feeling better. His pain (headache and neck stiffness) has decreased to a 3/10 and his vital signs are stable. His WBC remains elevated at 18.27 and so far, his blood and CSF cultures are negative. CM was unable to meet with him as he remains a PUI while awaiting Covid test results. ADVANCE DIRECTIVES:: none on file CODE STATUS:: Full Code INSURANCE COVERAGE / FINANCIAL ISSUES:: Yee PRIMARY CARE PHYSICIAN:: Fer Forte POTENTIAL DISCHARGE NEEDS:: Follow up with PCP and discharge plan of care PATIENT/FAMILY EDUCATION NEEDS:: Discharge plan, limitationsm, follow up plan, Ask Me Three TRANSPORTATION:: via private vehicle with family PLAN:: Garry will likely return home with no services. He will follow up with his PCP and discharge plan of care and transport via private vehicle with his . CM will continue to assess for discharge needs and provide support to patient and family.
[2019-12-21] MEDS: Thiamine 100 MG TAB PO (14:47)
[2019-12-21 20:04] LABS: Vancomycin, Trough 13.1 ug/mL (10.0-20.0)
[2019-12-21] MEDS: VANCOMYCIN 1,250 MG in Normal Saline 250 ML 166.7 MG IV (20:16)
[2019-12-22] VITALS (11 sets, daily range): BP systolic 133–159; BP diastolic 73–83; PULSE 56–89; RESP 16–20; TEMP 36.3–37; O2SAT 92–96
[2019-12-22] MEDS: HYDROmorphone 2 MG/ML VIAL IVP ×4 (04:26→19:29)
[2019-12-22] MEDS: VANCOMYCIN 1,250 MG in Normal Saline 250 ML 166.67 MG IV (04:26)
[2019-12-22 07:03] LABS: Abs Immature Grans 0.25 10^3/uL (0.0-0.06); Absolute Basophil Count 0.02 10^3/uL (0.0-0.2); Absolute Eosinophil Count 0.02 10^3/uL (0.0-0.7); Absolute Lymphocyte Count 2.32 10^3/uL (1.2-3.4); Absolute Neutrophil Count 11.41 10^3/uL (1.2-6.7); Basophils % 0.1; Eosinophils % 0.1; HCT 28.7 % (40.0-50.0); Immature Grans % 1.6; Lymphocytes % 14.5; MCH 30.4 pg (27.0-33.0); MCHC 34.8 % (32.0-36.0); MCV 87.2 fL (80-95); MPV 11.9 fL (8.0-11.0); Monocytes % 12.5; Neutrophils % 71.2; Nucleated RBC 0 %; RBC 3.29 10^6/uL (4.36-5.78); RDW-SD 41.4 fL; WBC 16.02 10^3/uL (4.4-10.8)
[2019-12-22 07:05] LABS: Anion Gap 7.4 mmol/L (3-11); BUN 12 mg/dL (7-18); C-Reactive Protein 14.38 mg/dL (0.0-0.3); CO2 25.6 mmol/L (21.0-32.0); CREATININE 0.62 mg/dL (0.70-1.30); Calcium 7.7 mg/dL (8.5-10.1); Chloride 96 mmol/L (98-107); Glucose 105 mg/dL (74-106); Potassium 3.4 mmol/L (3.5-5.1); Sodium 129 mmol/L (136-145)
[2019-12-22 07:16] LABS: Hemoglobin A1C 5.7 % (<5.7)
[2019-12-22 07:25] LABS: Diff Comment Agrees w/ Instrument; Platelet Count 118 10^3/uL (130-400); RBC Morphology Normal
[2019-12-22] MEDS: Normal Saline 1,000 ML 125 ML IV ×2 (07:48→19:42)
[2019-12-22] MEDS: Ondansetron 4 MG/2 ML VIAL IVP ×2 (08:03→12:44)
[2019-12-22] MEDS: Multivitamin TAB 1 TAB PO (08:09)
[2019-12-22] MEDS: Folic Acid 1 MG TAB PO (08:09)
[2019-12-22] MEDS: Thiamine 100 MG TAB PO (08:09)
--- NOTE | 2019-12-22 08:16 | W.PM.PROGNOT ---
Date of Service Date of service: 12/22/19 Time of Service: 11:08 Assessment and Plan Assessment and plan (1) Sepsis: Status: Acute Assessment and plan: Due to meningitis. Blood cultures positive for gram negative rods. CSF cultures with no growth to date. Await speciation/sensitivities. For now, continue vanco/meropenem, though vanco could likely be d/c'ed. We are covering pasteurella and capnocytophaga spp (dog oral fidencio) in addition to H. flu, lysteria, etc. Dog bite was the likely portal of entry for infection. He is immunocompramised due to alcohol abuse. (2) Meningitis: Status: Acute Assessment and plan: As above. (3) Gram-negative bacteremia: Status: Acute Assessment and plan: As above. Also obtain echo to ensure no endocarditis. (4) Dog bite of left hand: Status: Acute Assessment and plan: No evidence of cellulitis at this time, but per patient, there was redness/swelling in the few days following the dog bite. As above - the likely point of entry. (5) Thrombocytopenia: Status: Acute Assessment and plan: ?due to sepsis, TTP due to one of the dog oral fidencio organisms, vs splenic sequestration due to EtOH or simply due to EtOH. Await US abdomen. (6) Hyperglycemia: Status: Resolved Assessment and plan: Likely due to the dose of decadron he received. A1C 5.7 (7) Hyponatremia: Status: Acute Assessment and plan: Worse today - Continue NS (8) Hypomagnesemia: Status: Resolved Assessment and plan: Recheck in am (9) Hypokalemia: Status: Acute Assessment and plan: Replete; recheck in am. (10) Alcohol abuse: Status: Chronic Assessment and plan: Continue CIWA w/ prn lorazepam; continue thiamine, vitamins. (11) DVT prophylaxis: Status: Acute Assessment and plan: TEDs/SCDs (12) Discharge planning issues: Status: Acute Assessment and plan: Full code In med surg status. Subjective Subjective Interval history since last seen: T max 37.8. Nauseated and did vomit once. Photophobic/phonophonic. Denies dizziness, states headache is significantly better today, neck is sore. Denies chest pain, but feels like he is not taking deep breaths. Blood cultures positive for GNR. Exam Narrative Exam Narrative: General: Very pleasant middle-aged male, looks much better than yesterday, still photophobic/phonophonic HEENT: EOMI, MMM Heart: RRR, no m/r/g Lungs: CTAB Abdomen: soft, nontender, nondistended Extremities: no e/c/c BLEs, dog bite wounds on left hand appear to be healing well, without erythema/swelling/drainage; full ROM. Objective Objective Clinical Data: Abnormal lab results 12/21/19 12/21/19 12/22/19 Range/Units 06:10 06:10 06:15 WBC 18.27 H D (4.4-10.8) 10^3/uL RBC 3.70 L (4.36-5.78) 10^6/uL Hgb 11.4 L (13.5-17.5) g/dL Hct 32.5 L (40.0-50.0) % Plt Count 82 L (130-400) 10^3/uL MPV 11.5 H (8.0-11.0) fL Absolute Neutrophils 15.13 H (1.2-6.7) 10^3/uL Absolute Monocytes 1.52 H (0.1-0.8) 10^3/uL Sodium (136-145) mmol/L Potassium (3.5-5.1) mmol/L Chloride (98-107) mmol/L Creatinine (0.70-1.30) mg/dL Calcium (8.5-10.1) mg/dL C-Reactive Protein 19.87 H 14.38 H (0.0-0.3) mg/dL 12/22/19 12/22/19 Range/Units 06:15 06:15 WBC 16.02 H (4.4-10.8) 10^3/uL RBC 3.29 L (4.36-5.78) 10^6/uL Hgb 10.0 L (13.5-17.5) g/dL Hct 28.7 L (40.0-50.0) % Plt Count 118 L (130-400) 10^3/uL MPV 11.9 H (8.0-11.0) fL Absolute Neutrophils 11.41 H (1.2-6.7) 10^3/uL Absolute Monocytes 2.00 H (0.1-0.8) 10^3/uL Sodium 129 L (136-145) mmol/L Potassium 3.4 L (3.5-5.1) mmol/L Chloride 96 L (98-107) mmol/L Creatinine 0.62 L (0.70-1.30) mg/dL Calcium 7.7 L (8.5-10.1) mg/dL C-Reactive Protein (0.0-0.3) mg/dL Vital Signs Temperature 37.0 C 12/22/19 04:30 Temperature Source Temporal Artery Scan 12/22/19 04:30 Pulse 67 12/22/19 04:30 Pulse Rhythm Regular 12/21/19 15:55 Pulse 72 12/20/19 22:20 Respiratory Rate 18 12/21/19 15:55 Respiratory Effort 12/22/19 04:30 Respiratory Depth Normal 12/22/19 04:30 Respiratory Pattern Normal 12/22/19 04:30 Blood Pressure 139/73 12/22/19 04:30 Blood Pressure Mean 88 12/22/19 04:30 Blood Pressure Position Supine 12/20/19 11:25 Pulse Oximetry 94 L 12/22/19 04:30 Oxygen Delivery Method Room Air 12/21/19 19:34 Oxygen Flow Rate 0 12/21/19 19:34 Pain Level 3 12/22/19 05:26 Intake & Output 12/21/19 12/21/19 12/22/19 11:59 23:59 11:59 Intake Total 2625 / 4770.833 2145.833 / 4770.833 350 / 350 Output Total 550 / 1300 750 / 1300 450 / 450 Balance 2075 / 3470.833 1395.833 / 3470.833 -100 / -100 Intake: IV 1600 / 3245.833 1645.833 / 3245.833 350 / 350 Oral 1025 / 1525 500 / 1525 Output: Urine 550 / 1300 750 / 1300 250 / 250 Emesis 200 / 200 Other: Urine Color Dark Hanane Yellow Dark Hanane Urine Appearance Clear Clear Clear Urine Odor None None Emesis Description None Retching Undigested Food Voiding Methods Urinal Urinal Urinal Laboratory Results WBC 16.02 10^3/uL (4.4-10.8) H 12/22/19 06:15 RBC 3.29 10^6/uL (4.36-5.78) L 12/22/19 06:15 Hgb 10.0 g/dL (13.5-17.5) L 12/22/19 06:15 Hct 28.7 % (40.0-50.0) L 12/22/19 06:15 MCV 87.2 fL (80-95) 12/22/19 06:15 MCH 30.4 pg (27.0-33.0) 12/22/19 06:15 MCHC 34.8 % (32.0-36.0) 12/22/19 06:15 RDW 13.0 % (11.8-14.1) 12/22/19 06:15 Plt Count 118 10^3/uL (130-400) L 12/22/19 06:15 MPV 11.9 fL (8.0-11.0) H 12/22/19 06:15 Immature Gran % 1.6 12/22/19 06:15 Neutrophils % 71.2 12/22/19 06:15 Lymphocytes % 14.5 12/22/19 06:15 Monocytes % 12.5 12/22/19 06:15 Eosinophils % 0.1 12/22/19 06:15 Basophils % 0.1 12/22/19 06:15 Nucleated RBC % 0 % 12/22/19 06:15 Absolute Neutrophils 11.41 10^3/uL (1.2-6.7) H 12/22/19 06:15 Absolute Lymphocytes 2.32 10^3/uL (1.2-3.4) 12/22/19 06:15 Absolute Monocytes 2.00 10^3/uL (0.1-0.8) H 12/22/19 06:15 Absolute Eosinophils 0.02 10^3/uL (0.0-0.7) 12/22/19 06:15 Absolute Basophils 0.02 10^3/uL (0.0-0.2) 12/22/19 06:15 RBC Morphology Normal 12/22/19 06:15 Xanthochromia Absent 12/20/19 14:10 ESR 27 mm/hr (1-20) H 12/20/19 11:40 PT 9.0 sec (9.3-11.0) L 12/20/19 11:40 INR 0.9 (0.9-1.1) 12/20/19 11:40 APTT 28.7 sec (21.0-31.4) 12/20/19 11:40 VBG Lactate 1.3 mmol/L (0.6-1.4) 12/20/19 11:40 Sodium 129 mmol/L (136-145) L 12/22/19 06:15 Potassium 3.4 mmol/L (3.5-5.1) L 12/22/19 06:15 Chloride 96 mmol/L (98-107) L 12/22/19 06:15 Carbon Dioxide 25.6 mmol/L (21.0-32.0) 12/22/19 06:15 Anion Gap 7.4 mmol/L (3-11) 12/22/19 06:15 BUN 12 mg/dL (7-18) 12/22/19 06:15 Creatinine 0.62 mg/dL (0.70-1.30) L 12/22/19 06:15 Estimated GFR/1.73 m2 >= 60.00 (mL/min/1.73m2) 12/22/19 06:15 Glucose 105 mg/dL (74-106) 12/22/19 06:15 Hemoglobin A1c 5.7 % (<5.7) 12/22/19 06:15 Calcium 7.7 mg/dL (8.5-10.1) L 12/22/19 06:15 Magnesium 2.0 mg/dL (1.8-2.4) 12/22/19 06:15 Total Bilirubin 0.4 mg/dL (0.2-1.0) 12/20/19 11:40 AST 27 U/L (15-37) 12/20/19 11:40 ALT 40 U/L (16-63) 12/20/19 11:40 Alkaline Phosphatase 72 U/L (46-116) 12/20/19 11:40 Troponin I < 0.05 ng/mL (<0.06) 12/20/19 15:00 C-Reactive Protein 14.38 mg/dL (0.0-0.3) H 12/22/19 06:15 NT-Pro-B Natriuret Pep 592 pg/mL (<300) H 12/20/19 11:40 Total Protein 6.8 g/dL (6.4-8.2) 12/20/19 11:40 Albumin 3.1 g/dL (3.4-5.0) L 12/20/19 11:40 Procalcitonin 2.7 ng/mL 12/20/19 11:40 Urine Color Yellow (Yellow) 12/20/19 12:25 Urine Clarity Clear (Clear) 12/20/19 12:25 Urine pH 6.0 (5-8) 12/20/19 12:25 Ur Specific [place] 1.025 (1.005-1.025) 12/20/19 12:25 Urine Protein 100 mg/dL (Negative) H 12/20/19 12:25 Urine Ketones Negative mg/dL (Negative) 12/20/19 12:25 Urine Blood Trace-intact (Negative) H 12/20/19 12:25 Urine Nitrite Negative (Negative) 12/20/19 12:25 Urine Bilirubin Negative (Negative) 12/20/19 12:25 Urine Urobilinogen 1.0 EU/dL (Up TO 0.2) H 12/20/19 12:25 Ur Leukocyte Esterase Negative (Negative) 12/20/19 12:25 Urine RBC 3-5 HPF (0-2) H 12/20/19 12:25 Urine WBC 0-2 HPF (0-5) 12/20/19 12:25 Ur Epithelial Cells Few HPF (Negative) 12/20/19 12:25 Urine Crystals Negative HPF (Negative) 12/20/19 12:25 Urine Bacteria Negative HPF (Negative) 12/20/19 12:25 Urine Casts 3-5 fine granular LPF (Negative) 12/20/19 12:25 Urine Mucus Negative (Negative) 12/20/19 12:25 Ur Culture Indicated? No 12/20/19 12:25 Urine Glucose Negative mg/dL (Negative) 12/20/19 12:25 CSF Tube Number 4 12/20/19 14:10 CSF Color Colorless 12/20/19 14:10 CSF Clarity Cloudy 12/20/19 14:10 CSF WBC 3233 /uL (0-5) H* 12/20/19 14:10 CSF RBC 69 /mm3 (0-5) H 12/20/19 14:10 CSF RBC (1) 114 /mm3 (0-5) H 12/20/19 14:10 CSF Neutrophils % 80 % (0-6) H 12/20/19 14:10 CSF Lymphocytes % 1 % (40-80) L 12/20/19 14:10 CSF Monos/Macrophage % 19 % (15-45) 12/20/19 14:10 CSF Diff Comment Performed 12/20/19 14:10 CSF Glucose 32 mg/dL (40-70) L 12/20/19 14:10 CSF Total Protein 317 mg/dL (15-45) H 12/20/19 14:10 Gentamicin Trough Cancelled 12/21/19 19:00 Vancomycin Trough 13.1 ug/mL (10.0-20.0) 12/21/19 19:20 COVID-19 PCR Cancelled 12/21/19 13:27 Nasopharyn COVID-19 PCR Cancelled 12/21/19 13:27 Path Cons Comment 12/20/19 14:10 Ref Test Perform Site Cancelled 12/21/19 13:27 US abdomen: pending
[2019-12-22 08:40] LABS: COVID-19 RT-PCR UVMMC Result Negative (Negative)
--- NOTE | 2019-12-22 10:06 | PDOC.CMPRO ---
- If Service Date Differs Date of service: 12/22/19 Time of Service: 10:06 Care Management Progress Note S/O:Alonso was lying in bed when CM met with him. He was open and cooperative and agreeable to conversation. Alonso stated that he is starting to feel a little better but that he still has a headache and light hurts his eyes. Alonso does not believe that he needs any home services at discharge. He is independent at baseline and lives with his who is supportive. A: Garry is a 59 year old man admitted with meningitis P:Garry will likely return home with no services. He will follow up with his PCP and discharge plan of care and transport via private vehicle with his . CM will continue to assess for discharge needs and provide support to patient and family.
--- NOTE | 2019-12-22 10:42 | DI.US_ITS ---
EXAM: US ABDOMEN CLINICAL HISTORY: alcohol abuse, low plts, ?cirrhosis/splenomegaly TECHNIQUE: Ultrasound abdomen performed using standard protocol. COMPARISON: No exams were available for comparison FINDINGS: ABDOMINAL AORTA AND IVC: Visualized portions normal caliber. PANCREAS: Normal where visualized. LIVER: Normal. Hepatopedal flow in the Portal Vein. 18 cm in length. GALLBLADDER: No evidence of cholelithiasis. No evidence of wall thickening. Trace pericholecystic flu id. BILIARY SYSTEM: Common bile duct measures < 7 mm. No intrahepatic biliary ductal dilation. RODRIGUEZ'S SIGN: Negative. KIDNEYS: Kidneys are symmetric in size. No evidence of renal calculi. No evidence of hydronephrosis. No renal mass or cyst identified. SPLEEN: Not enlarged. ASCITES: None seen. IMPRESSION: 1. Mild hepatomegaly. 2. Trace pericholecystic fluid. DATA REPOSITORY:
[2019-12-22] MEDS: Nicotine 21 MG/24 HR PATCH TD (13:07)
[2019-12-22] MEDS: POTASSIUM CHLORIDE 20 MEQ/100 ML BAG 50 MEQ IVPB ×2 (13:12→15:34)
[2019-12-22] MEDS: Normal Saline Flush 10 ML SYR IVP (13:54)
--- NOTE | 2019-12-22 14:28 | W.NUTCONSULT ---
Date of service: 12/22/19 Time of Service: 14:28 Nutritional Consult ASSESSMENT: 59 year old male admitted with meningtitis with hyponatremia, hypomagnesemia, hypokalemia. BMI wnl for age. Has only had a couple bites of food since admit, taking beverages. At risk for nutritional decline if unable to meet at least 50% nutrient needs in next couple of days. Estimated Needs: [id number] kca, 75-85 g protein, 2200 ml fluid. NUTRITIONAL DIAGNOSIS: Inadequate nutrient intake due to poor appetite secondary to meningtitis INTERVENTION: Continue to offer meals and beverages of choice MONITORING AND EVALUATION: will monitor po intake,labs, weight Time Spent in Nutritional Counseling and Treatment: 0 time spent face to face
--- NOTE | 2019-12-22 15:14 | DI.US_ITS ---
APPROVED REPORT EXAM: Comprehensive 2D, Doppler, and color-flow Echocardiogram Patient Location: In-Patient Room/Bed: USJ124 [employer] Dispatcher: Sydni Castro RDCS (AE) Indications: Bacteremia Other Information Study Quality: Fair Conclusion This is a limited echo due to poor windows. Left Ventricle : The Left Ventricular Ejection Fraction is estimated to be 50-55%. Right Ventricle : Right ventricle is not well visualized. Right ventricular systolic function could n ot be assessed. Atria : The left atrium size is normal. Right atrium is not well visualized. Valves: There are no hemodynamically significant valvular lesions. There is no evidence of valvular vegetation seen. Please see remainder of study for further details. Wall motion Left Ventricle The left ventricle is normal size. The left ventricular systolic function is normal. The left ventric ular ejection fraction is within the normal range. There is normal left ventricular wall thickness. T here is normal LV segmental wall motion. The left ventricular diastolic function is normal. The Left Ventricular Ejection Fraction is estimated to be 50-55%. Right Ventricle Right ventricle is not well visualized. Right ventricular systolic function could not be assessed. Atria The left atrium size is normal. Right atrium is not well visualized. The interatrial septum is intact with no evidence for an atrial septal defect. Aortic Valve Aortic valve is trileaflet. There is no aortic valvular stenosis. No aortic regurgitation is present. Mitral Valve The mitral valve is normal in structure. No evidence of mitral valve stenosis. Trace to mild mitral r egurgitation. Tricuspid Valve The tricuspid valve is normal in structure. There is no tricuspid valve stenosis. Trace to mild tricu spid regurgitation. Pulmonic Valve The pulmonary valve is normal in structure. There is no pulmonic valvular stenosis. There is no pulmo fidel valvular regurgitation. Great Vessels The aortic root is normal in size. Ascending aorta is not well visualized. Aortic arch is not well vi sualized. IVC is normal in size and collapses >50% with inspiration. Pericardium Trace pericardial effusion. 2D Dimensions IVSD d PLAX 0.88 cm M: 0.6-1.2 LVPW d PLAX 0.97 cm M: 0.6 - 1.2 LVID d PLAX 4.71 cm M: 4.2 - 5.8 LVDs 3.40 cm M: 2.5 - 4.0 Ao Root d 2.12 cm M: 3.1 - 3.7 LV [facility] % FS 26.95 % LV Diastology MV E' medial 0.133 (>0.07 m/s) E/A Ratio 1.3 LV E/e MED 4.95 (<14) MV E Vmax 0.66 (0.4-1.3 m/s) MV E' lateral 0.140 (>0.1 m/s) MV A Vmax 0.50 (0.4-1.3 m/s) LV E/e LAT 4.70 (<14) MV E/A Ratio 1.25 MV E/E' medial 4.98 MV E/E' lateral 4.73 Aortic Valve LVOT Area 2.80 cm2 AoV Area Vmax 2.01 cm2 LVOT Vmax 0.76 m/s AoV Area/ BSA (Vmax) 1.08 cm2/m2 LVOT Mean Pj. 0.47 m/s SANA Mean Pj. 1.69 cm2 LVOT Peak Grad 2.3 mmHg SANA Mean Pj. Index 0.91 cm2/m2 LVOT Mean Grad 1.1 mmHg LVOT VTI 0.147 m LVOT Diam s 1.85 cm AoV Vmax 1.06 m/s Velocity Ratio 0.71 AoV Mean Pj. 0.78 m/s AoV Peak Grad 4.5 mmHg LVOT SV 41.17 mL AoV Mean Grad 2.7 mmHg AoV VTI 0.203 m AoV Area VTI 2.03 cm2 AoV Area/ BSA (VTI) 1.09 cm/m2 Mitral Valve MV DT 163 (160-240 msec) MV PHT 47 msec MV Area PHT 4.65 cm2 Pulmonary Valve PV Vmax 0.95 (0.5-1.5 m/s) RVOT Peak Gr. 2.21 mmHg PV Peak Grad 3.6 mmHg RVOT Mean Gr. 1.00 mmHg PV Mean Grad 2.0 mmHg RVOT VTI 0.172 m PV VTI 0.180 m RVOT Vmax 0.74 m/s Tricuspid Valve TR Peak Grad 41.9 mmHg TR Vmax 3.24 m/s
[2019-12-22 18:08] LABS: Patient Race White; SARS-CoV-2 Specimen Source Nasopharynx
[2019-12-22 22:13] LABS: SARS-CoV-2 RNA Undetected (Undetected)
[2019-12-23] VITALS (20 sets, daily range): BP systolic 139–152; BP diastolic 64–82; PULSE 57–68; RESP 14–18; TEMP 36.3–36.6; O2SAT 92–99
[2019-12-23] MEDS: HYDROmorphone 2 MG/ML VIAL IVP ×2 (01:08→05:23)
[2019-12-23] MEDS: Normal Saline 1,000 ML 125 ML IV ×3 (04:05→18:49)
[2019-12-23 06:36] LABS: Abs Immature Grans 0.28 10^3/uL (0.0-0.06); Absolute Basophil Count 0.02 10^3/uL (0.0-0.2); Absolute Lymphocyte Count 2.56 10^3/uL (1.2-3.4); Absolute Monocyte Count 1.58 10^3/uL (0.1-0.8); Absolute Neutrophil Count 5.67 10^3/uL (1.2-6.7); Basophils % 0.2; HCT 31.9 % (40.0-50.0); HGB 10.9 g/dL (13.5-17.5); Immature Grans % 2.7; Lymphocytes % 25.1; MCH 30.4 pg (27.0-33.0); MCHC 34.2 % (32.0-36.0); MCV 88.9 fL (80-95); MPV 10.5 fL (8.0-11.0); Monocytes % 15.5; Neutrophils % 55.5; Nucleated RBC 0 %; Platelet Count 219 10^3/uL (130-400); RBC 3.59 10^6/uL (4.36-5.78); RDW 12.8 % (11.8-14.1); RDW-SD 41.7 fL; WBC 10.21 10^3/uL (4.4-10.8)
[2019-12-23 07:07] LABS: Diff Comment Agrees w/ Instrument; RBC Morphology Normal
[2019-12-23 07:13] LABS: Anion Gap 7.8 mmol/L (3-11); BUN 8 mg/dL (7-18); C-Reactive Protein 7.46 mg/dL (0.0-0.3); CO2 26.2 mmol/L (21.0-32.0); CREATININE 0.61 mg/dL (0.70-1.30); Calcium 7.6 mg/dL (8.5-10.1); Chloride 100 mmol/L (98-107); Glucose 93 mg/dL (74-106); Magnesium 1.9 mg/dL (1.8-2.4); Potassium 3.5 mmol/L (3.5-5.1); Sodium 134 mmol/L (136-145)
[2019-12-23 07:25] LABS: Procalcitonin 0.3 ng/mL
[2019-12-23] MEDS: Folic Acid 1 MG TAB PO (08:20)
[2019-12-23] MEDS: Thiamine 100 MG TAB PO (08:21)
[2019-12-23] MEDS: Multivitamin TAB 1 TAB PO (08:21)
[2019-12-23] MEDS: Polyethylene Glycol 3350 17 GM PACKET PO (08:23)
[2019-12-23] MEDS: Docusate Sodium 100 MG CAP PO (08:23)
[2019-12-23] MEDS: Normal Saline Flush 10 ML SYR IVP ×2 (08:52→16:38)
--- NOTE | 2019-12-23 08:54 | PDOC.CMPRO ---
- If Service Date Differs Date of service: 12/23/19 Time of Service: 08:54 Care Management Progress Note S/O:Alonso remains in the ICU no changes in the plan today. CM reviewed chart, discharge plan and goals of care reviewed at morning rounds. CM to continue to follow for discharge planning and disposition needs. A: Garry is a 59 year old man admitted with meningitis P:Garry will likely return home with no services. He will follow up with his PCP and discharge plan of care and transport via private vehicle with his . CM will continue to assess for discharge needs and provide support to patient and family.
--- NOTE | 2019-12-23 08:58 | NUR.NOTE ---
Vancomycin trough is drawn.
--- NOTE | 2019-12-23 09:16 | NUR.NOTE ---
Patient had 3 IV sites. Patient requests one IV be dc'd. RN removes 18 gauge in right AC. Patient is most appreciateive.Nursing Note:
[2019-12-23] MEDS: Acetaminophen 325 MG TAB PO ×2 (09:35→16:38)
--- NOTE | 2019-12-23 11:18 | NUR.NOTE ---
Patient is sleeping quietly and is easily arousable. 1.5 grams of Vancomycin continues to infuse.Nursing Note:
--- NOTE | 2019-12-23 12:59 | W.PM.PROGNOT ---
Date of Service Date of service: 12/23/19 Time of Service: 12:59 Assessment and Plan Assessment and plan (1) Gram-negative bacteremia: Status: Acute Assessment and plan: Speciation and susceptabilities pending. Organism from dog saliva likely. Cont meropenem and Vancomycin WBC count normalized. (2) Thrombocytopenia: Status: Acute Assessment and plan: Resolved (3) Dog bite of left hand: Status: Acute Assessment and plan: No local erythema or discharge. WBC count normalized. Qualifiers: Encounter type: subsequent encounter Qualified Code(s): S61.452D - Open bite of left hand, subsequent encounter; W54.0XXD - Bitten by dog, subsequent encounter (4) Hyponatremia: Status: Acute Assessment and plan: Na improved from 129 to 134 Monitor (5) Meningitis: Status: Acute Assessment and plan: Clinically improved. CSF and blood cultures in progress in progress. NGTD Added prn Toradol for pain/ELIAS. Also added GI protection with Protonix. Subjective Subjective Patient reports: feels better Interval history since last seen: No F/C ELIAS improved. Neck stiffness improved Tolerating diet No pain in thumb at bite sites; swelling has resolved and has ROM Exam Const General: cooperative and no acute distress Nutritional Appearance: average body habitus Neck Neck: full ROM (Moves neck slowly) Resp Effort & Inspection: normal respiratory effort Auscultation: clear to auscultation bilaterally Cardio Rate: regular rate Rhythm: regular rhythm Heart Sounds: S1 normal and S2 normal Skin Rashes: no rashes Wounds: wounds noted (L thumb with several closed puncture sites. No swelling/erythema/drainage) Extrem General: no clubbing, cyanosis or edema Psych Appearance: grossly normal Mood: congruent mood Affect: normal affect Objective Objective Clinical Data: Abnormal lab results 12/23/19 12/23/19 Range/Units 06:11 06:11 RBC 3.59 L (4.36-5.78) 10^6/uL Hgb 10.9 L (13.5-17.5) g/dL Hct 31.9 L (40.0-50.0) % Absolute Monocytes 1.58 H (0.1-0.8) 10^3/uL Sodium 134 L (136-145) mmol/L Creatinine 0.61 L (0.70-1.30) mg/dL Calcium 7.6 L (8.5-10.1) mg/dL C-Reactive Protein 7.46 H (0.0-0.3) mg/dL Vital Signs Temperature 36.4 C L 12/23/19 12:41 Temperature Source Temporal Artery Scan 12/23/19 12:41 Pulse 57 L 12/23/19 12:41 Pulse Rhythm Regular 12/23/19 08:01 Pulse 72 12/20/19 22:20 Respiratory Rate 18 12/23/19 12:41 Respiratory Effort Non-Labored 12/23/19 08:01 Respiratory Depth Normal 12/23/19 08:01 Respiratory Pattern Normal 12/23/19 08:01 Blood Pressure 143/79 H 12/23/19 12:41 Blood Pressure Mean 94 12/22/19 12:19 Blood Pressure Position Supine 12/20/19 11:25 Pulse Oximetry 97 12/23/19 07:56 Oxygen Delivery Method Room Air 12/23/19 12:41 Oxygen Flow Rate 0 12/23/19 12:41 Pain Level 1 12/23/19 12:41 Comment 12/23/19 12:41 Intake & Output 12/22/19 12/23/19 12/23/19 23:59 11:59 23:59 Intake Total 2019 / 3370 2569.583 / 3059.583 490 / 3059.583 Output Total 1750 / 2200 3600 / 4050 450 / 4050 Balance 270 / 1170 -1030.417 / -990.417 40 / -990.417 Weight 73.6 kg Intake: IV 1800 / 3150 1989.583 / 2239.583 250 / 2239.583 Oral 220 / 220 580 / 820 240 / 820 Output: Urine 1750 / 2000 3600 / 4050 450 / 4050 Other: Urine Color Yellow Yellow Yellow Urine Appearance Clear Clear Clear Urine Odor None None None Stool Size Moderate Stool Characteristics Soft Formed Emesis Description None Voiding Methods Urinal Urinal Urinal Laboratory Results WBC 10.21 10^3/uL (4.4-10.8) D 12/23/19 06:11 RBC 3.59 10^6/uL (4.36-5.78) L 12/23/19 06:11 Hgb 10.9 g/dL (13.5-17.5) L 12/23/19 06:11 Hct 31.9 % (40.0-50.0) L 12/23/19 06:11 MCV 88.9 fL (80-95) 12/23/19 06:11 MCH 30.4 pg (27.0-33.0) 12/23/19 06:11 MCHC 34.2 % (32.0-36.0) 12/23/19 06:11 RDW 12.8 % (11.8-14.1) 12/23/19 06:11 Plt Count 219 10^3/uL (130-400) D 12/23/19 06:11 MPV 10.5 fL (8.0-11.0) 12/23/19 06:11 Immature Gran % 2.7 12/23/19 06:11 Neutrophils % 55.5 12/23/19 06:11 Lymphocytes % 25.1 12/23/19 06:11 Monocytes % 15.5 12/23/19 06:11 Eosinophils % 1.0 12/23/19 06:11 Basophils % 0.2 12/23/19 06:11 Nucleated RBC % 0 % 12/23/19 06:11 Absolute Neutrophils 5.67 10^3/uL (1.2-6.7) 12/23/19 06:11 Absolute Lymphocytes 2.56 10^3/uL (1.2-3.4) 12/23/19 06:11 Absolute Monocytes 1.58 10^3/uL (0.1-0.8) H 12/23/19 06:11 Absolute Eosinophils 0.10 10^3/uL (0.0-0.7) 12/23/19 06:11 Absolute Basophils 0.02 10^3/uL (0.0-0.2) 12/23/19 06:11 RBC Morphology Normal 12/23/19 06:11 Xanthochromia Absent 12/20/19 14:10 ESR 27 mm/hr (1-20) H 12/20/19 11:40 PT 9.0 sec (9.3-11.0) L 12/20/19 11:40 INR 0.9 (0.9-1.1) 12/20/19 11:40 APTT 28.7 sec (21.0-31.4) 12/20/19 11:40 VBG Lactate 1.3 mmol/L (0.6-1.4) 12/20/19 11:40 Sodium 134 mmol/L (136-145) L 12/23/19 06:11 Potassium 3.5 mmol/L (3.5-5.1) 12/23/19 06:11 Chloride 100 mmol/L (98-107) 12/23/19 06:11 Carbon Dioxide 26.2 mmol/L (21.0-32.0) 12/23/19 06:11 Anion Gap 7.8 mmol/L (3-11) 12/23/19 06:11 BUN 8 mg/dL (7-18) 12/23/19 06:11 Creatinine 0.61 mg/dL (0.70-1.30) L 12/23/19 06:11 Estimated GFR/1.73 m2 >= 60.00 (mL/min/1.73m2) 12/23/19 06:11 Glucose 93 mg/dL (74-106) 12/23/19 06:11 Hemoglobin A1c 5.7 % (<5.7) 12/22/19 06:15 Calcium 7.6 mg/dL (8.5-10.1) L 12/23/19 06:11 Magnesium 1.9 mg/dL (1.8-2.4) 12/23/19 06:11 Total Bilirubin 0.4 mg/dL (0.2-1.0) 12/20/19 11:40 AST 27 U/L (15-37) 12/20/19 11:40 ALT 40 U/L (16-63) 12/20/19 11:40 Alkaline Phosphatase 72 U/L (46-116) 12/20/19 11:40 Troponin I < 0.05 ng/mL (<0.06) 12/20/19 15:00 C-Reactive Protein 7.46 mg/dL (0.0-0.3) H 12/23/19 06:11 NT-Pro-B Natriuret Pep 592 pg/mL (<300) H 12/20/19 11:40 Total Protein 6.8 g/dL (6.4-8.2) 12/20/19 11:40 Albumin 3.1 g/dL (3.4-5.0) L 12/20/19 11:40 Procalcitonin 0.3 ng/mL 12/23/19 06:11 Urine Color Yellow (Yellow) 12/20/19 12:25 Urine Clarity Clear (Clear) 12/20/19 12:25 Urine pH 6.0 (5-8) 12/20/19 12:25 Ur Specific [place] 1.025 (1.005-1.025) 12/20/19 12:25 Urine Protein 100 mg/dL (Negative) H 12/20/19 12:25 Urine Ketones Negative mg/dL (Negative) 12/20/19 12:25 Urine Blood Trace-intact (Negative) H 12/20/19 12:25 Urine Nitrite Negative (Negative) 12/20/19 12:25 Urine Bilirubin Negative (Negative) 12/20/19 12:25 Urine Urobilinogen 1.0 EU/dL (Up TO 0.2) H 12/20/19 12:25 Ur Leukocyte Esterase Negative (Negative) 12/20/19 12:25 Urine RBC 3-5 HPF (0-2) H 12/20/19 12:25 Urine WBC 0-2 HPF (0-5) 12/20/19 12:25 Ur Epithelial Cells Few HPF (Negative) 12/20/19 12:25 Urine Crystals Negative HPF (Negative) 12/20/19 12:25 Urine Bacteria Negative HPF (Negative) 12/20/19 12:25 Urine Casts 3-5 fine granular LPF (Negative) 12/20/19 12:25 Urine Mucus Negative (Negative) 12/20/19 12:25 Ur Culture Indicated? No 12/20/19 12:25 Urine Glucose Negative mg/dL (Negative) 12/20/19 12:25 CSF Tube Number 4 12/20/19 14:10 CSF Color Colorless 12/20/19 14:10 CSF Clarity Cloudy 12/20/19 14:10 CSF WBC 3233 /uL (0-5) H* 12/20/19 14:10 CSF RBC 69 /mm3 (0-5) H 12/20/19 14:10 CSF RBC (1) 114 /mm3 (0-5) H 12/20/19 14:10 CSF Neutrophils % 80 % (0-6) H 12/20/19 14:10 CSF Lymphocytes % 1 % (40-80) L 12/20/19 14:10 CSF Monos/Macrophage % 19 % (15-45) 12/20/19 14:10 CSF Diff Comment Performed 12/20/19 14:10 CSF Glucose 32 mg/dL (40-70) L 12/20/19 14:10 CSF Total Protein 317 mg/dL (15-45) H 12/20/19 14:10 Gentamicin Trough Cancelled 12/21/19 19:00 Vancomycin Trough 20.0 ug/mL (10.0-20.0) 12/23/19 09:00 COVID-19 PCR Cancelled 12/21/19 13:27 Nasopharyn COVID-19 PCR Cancelled 12/21/19 13:27 SARS-CoV-2 Source Nasopharynx 12/20/19 11:42 SARS-CoV-2 (PCR) Undetected (Undetected) 12/20/19 11:42 Patient Race White 12/20/19 11:42 Patient Ethnicity See below 12/20/19 11:42 Path Cons Comment 12/20/19 14:10 Ref Test Method See comment 12/20/19 11:42 Ref Test Perform Site Cancelled 12/21/19 13:27
[2019-12-23] MEDS: Pantoprazole 40 MG TABCR PO (14:39)
[2019-12-23] MEDS: Ketorolac 30 MG/ML VIAL IVP (16:39)
[2019-12-23] MEDS: Enoxaparin 40 MG/0.4 ML SYR SC (22:15)
[2019-12-23] MEDS: Nicotine 21 MG/24 HR PATCH TD (22:44)
[2019-12-24] VITALS (16 sets, daily range): BP systolic 135–154; BP diastolic 75–83; PULSE 53–68; RESP 18; TEMP 36.3–36.6; O2SAT 96–98
--- NOTE | 2019-12-24 00:19 | NUR.NOTE ---
c/o stff neck and just a slight headache. Given Hydromorphone 1 tab for pain with relief. Using rolled up towel under neck instead of pillow.
[2019-12-24 07:45] LABS: Anion Gap 6.6 mmol/L (3-11); BUN 7 mg/dL (7-18); CO2 28.4 mmol/L (21.0-32.0); CREATININE 0.59 mg/dL (0.70-1.30); Chloride 101 mmol/L (98-107); Glucose 105 mg/dL (74-106); Sodium 136 mmol/L (136-145)
[2019-12-24] MEDS: Thiamine 100 MG TAB PO (08:23)
[2019-12-24] MEDS: Multivitamin TAB 1 TAB PO (08:23)
[2019-12-24] MEDS: Folic Acid 1 MG TAB PO (08:24)
[2019-12-24] MEDS: Pantoprazole 40 MG TABCR PO (08:24)
[2019-12-24] MEDS: Polyethylene Glycol 3350 17 GM PACKET PO (08:29)
[2019-12-24] MEDS: Normal Saline Flush 10 ML SYR IVP ×2 (08:39→23:39)
--- NOTE | 2019-12-24 09:14 | PDOC.CMPRO ---
- If Service Date Differs Date of service: 12/24/19 Time of Service: 09:14 Care Management Progress Note S/O:Alonso remains in the ICU no changes in the plan today. CM reviewed chart, discharge plan and goals of care reviewed at morning rounds. CM to continue to follow for discharge planning and disposition needs. Anticipate Alonso will be discharged once sensitivities are resulted and he can transition to oral abx. A: Garry is a 59 year old man admitted with meningitis P:Garry will likely return home with no services. He will follow up with his PCP and discharge plan of care and transport via private vehicle with his . CM will continue to assess for discharge needs and provide support to patient and family.
[2019-12-24] MEDS: Potassium Chloride 20 MEQ TABCR 40 MEQ PO ×2 (10:51→19:16)
--- NOTE | 2019-12-24 13:55 | PGE_ITS ---
Date of Service Date of service: 12/24/19 Time of Service: 13:55 Assessment and Plan Assessment and plan (1) Gram-negative bacteremia: Status: Acute Assessment and plan: On meropenem WBC count normalized Waiting for speciation and sensitivities. (2) Hypokalemia: Status: Acute Assessment and plan: K of 3.0 Oral replacement. Monitor (3) Meningitis: Status: Acute Assessment and plan: Gram stain of CSF neg for bacteria CSF culture NGTD On meropenem Clinically much improved. Subjective Subjective Patient reports: no new complaints, feels better, tolerating a regular diet and afebrile Exam Const General: cooperative and healthy appearing Nutritional Appearance: average body habitus Orientation: alert and oriented x3 Eyes Sclera: sclerae normal Pupils: PERRL Resp Effort & Inspection: normal respiratory effort Auscultation: clear to auscultation bilaterally Cardio Rate: regular rate Rhythm: regular rhythm Heart Sounds: S1 normal and S2 normal Extrem General: no pedal edema Psych Appearance: grossly normal Mental Status: mental status grossly normal Speech and Movement: speech and movement normal Objective Objective Clinical Data: Abnormal lab results 12/24/19 Range/Units 06:25 Potassium 3.0 L (3.5-5.1) mmol/L Creatinine 0.59 L (0.70-1.30) mg/dL Calcium 8.0 L (8.5-10.1) mg/dL Vital Signs Temperature 36.4 C L 12/24/19 11:35 Temperature Source Temporal Artery Scan 12/24/19 11:35 Pulse 64 12/24/19 11:35 Pulse Rhythm Regular 12/24/19 09:03 Pulse 72 12/20/19 22:20 Respiratory Rate 18 12/24/19 11:35 Respiratory Effort Non-Labored 12/24/19 09:03 Respiratory Depth Normal 12/24/19 09:03 Respiratory Pattern Normal 12/24/19 09:03 Blood Pressure 136/82 12/24/19 11:35 Blood Pressure Mean 98 12/23/19 17:05 Blood Pressure Position Supine 12/20/19 11:25 Pulse Oximetry 98 12/24/19 11:35 Oxygen Delivery Method Room Air 12/24/19 11:35 Oxygen Flow Rate 0 12/24/19 11:35 Pain Level 0 12/24/19 11:35 Comment 12/23/19 12:41 Intake & Output 12/23/19 12/24/19 12/24/19 23:59 11:59 23:59 Intake Total 2346 / 4915.583 680 / 800 120 / 800 Output Total 3350 / 6950 1600 / 1900 300 / 1900 Balance -1004 / -2034.417 -920 / -1100 -180 / -1100 Weight 73.2 kg Intake: IV 1286 / 3275.583 200 / 200 Oral 1060 / 1640 480 / 600 120 / 600 Output: Urine 2950 / 6550 1600 / 1900 300 / 1900 Stool 400 / 400 Other: Urine Color Pale Yellow Yellow Yellow Urine Appearance Clear Clear Clear Urine Odor None None None Stool Size Small Stool Characteristics Liquid Emesis Description None Voiding Methods Urinal Urinal Urinal Laboratory Results WBC 10.21 10^3/uL (4.4-10.8) D 12/23/19 06:11 RBC 3.59 10^6/uL (4.36-5.78) L 12/23/19 06:11 Hgb 10.9 g/dL (13.5-17.5) L 12/23/19 06:11 Hct 31.9 % (40.0-50.0) L 12/23/19 06:11 MCV 88.9 fL (80-95) 12/23/19 06:11 MCH 30.4 pg (27.0-33.0) 12/23/19 06:11 MCHC 34.2 % (32.0-36.0) 12/23/19 06:11 RDW 12.8 % (11.8-14.1) 12/23/19 06:11 Plt Count 219 10^3/uL (130-400) D 12/23/19 06:11 MPV 10.5 fL (8.0-11.0) 12/23/19 06:11 Immature Gran % 2.7 12/23/19 06:11 Neutrophils % 55.5 12/23/19 06:11 Lymphocytes % 25.1 12/23/19 06:11 Monocytes % 15.5 12/23/19 06:11 Eosinophils % 1.0 12/23/19 06:11 Basophils % 0.2 12/23/19 06:11 Nucleated RBC % 0 % 12/23/19 06:11 Absolute Neutrophils 5.67 10^3/uL (1.2-6.7) 12/23/19 06:11 Absolute Lymphocytes 2.56 10^3/uL (1.2-3.4) 12/23/19 06:11 Absolute Monocytes 1.58 10^3/uL (0.1-0.8) H 12/23/19 06:11 Absolute Eosinophils 0.10 10^3/uL (0.0-0.7) 12/23/19 06:11 Absolute Basophils 0.02 10^3/uL (0.0-0.2) 12/23/19 06:11 RBC Morphology Normal 12/23/19 06:11 Xanthochromia Absent 12/20/19 14:10 ESR 27 mm/hr (1-20) H 12/20/19 11:40 PT 9.0 sec (9.3-11.0) L 12/20/19 11:40 INR 0.9 (0.9-1.1) 12/20/19 11:40 APTT 28.7 sec (21.0-31.4) 12/20/19 11:40 VBG Lactate 1.3 mmol/L (0.6-1.4) 12/20/19 11:40 Sodium 136 mmol/L (136-145) 12/24/19 06:25 Potassium 3.0 mmol/L (3.5-5.1) L 12/24/19 06:25 Chloride 101 mmol/L (98-107) 12/24/19 06:25 Carbon Dioxide 28.4 mmol/L (21.0-32.0) 12/24/19 06:25 Anion Gap 6.6 mmol/L (3-11) 12/24/19 06:25 BUN 7 mg/dL (7-18) 12/24/19 06:25 Creatinine 0.59 mg/dL (0.70-1.30) L 12/24/19 06:25 Estimated GFR/1.73 m2 >= 60.00 (mL/min/1.73m2) 12/24/19 06:25 Glucose 105 mg/dL (74-106) 12/24/19 06:25 Hemoglobin A1c 5.7 % (<5.7) 12/22/19 06:15 Calcium 8.0 mg/dL (8.5-10.1) L 12/24/19 06:25 Magnesium 1.9 mg/dL (1.8-2.4) 12/23/19 06:11 Total Bilirubin 0.4 mg/dL (0.2-1.0) 12/20/19 11:40 AST 27 U/L (15-37) 12/20/19 11:40 ALT 40 U/L (16-63) 12/20/19 11:40 Alkaline Phosphatase 72 U/L (46-116) 12/20/19 11:40 Troponin I < 0.05 ng/mL (<0.06) 12/20/19 15:00 C-Reactive Protein 7.46 mg/dL (0.0-0.3) H 12/23/19 06:11 NT-Pro-B Natriuret Pep 592 pg/mL (<300) H 12/20/19 11:40 Total Protein 6.8 g/dL (6.4-8.2) 12/20/19 11:40 Albumin 3.1 g/dL (3.4-5.0) L 12/20/19 11:40 Procalcitonin 0.3 ng/mL 12/23/19 06:11 Urine Color Yellow (Yellow) 12/20/19 12:25 Urine Clarity Clear (Clear) 12/20/19 12:25 Urine pH 6.0 (5-8) 12/20/19 12:25 Ur Specific [place] 1.025 (1.005-1.025) 12/20/19 12:25 Urine Protein 100 mg/dL (Negative) H 12/20/19 12:25 Urine Ketones Negative mg/dL (Negative) 12/20/19 12:25 Urine Blood Trace-intact (Negative) H 12/20/19 12:25 Urine Nitrite Negative (Negative) 12/20/19 12:25 Urine Bilirubin Negative (Negative) 12/20/19 12:25 Urine Urobilinogen 1.0 EU/dL (Up TO 0.2) H 12/20/19 12:25 Ur Leukocyte Esterase Negative (Negative) 12/20/19 12:25 Urine RBC 3-5 HPF (0-2) H 12/20/19 12:25 Urine WBC 0-2 HPF (0-5) 12/20/19 12:25 Ur Epithelial Cells Few HPF (Negative) 12/20/19 12:25 Urine Crystals Negative HPF (Negative) 12/20/19 12:25 Urine Bacteria Negative HPF (Negative) 12/20/19 12:25 Urine Casts 3-5 fine granular LPF (Negative) 12/20/19 12:25 Urine Mucus Negative (Negative) 12/20/19 12:25 Ur Culture Indicated? No 12/20/19 12:25 Urine Glucose Negative mg/dL (Negative) 12/20/19 12:25 CSF Tube Number 4 12/20/19 14:10 CSF Color Colorless 12/20/19 14:10 CSF Clarity Cloudy 12/20/19 14:10 CSF WBC 3233 /uL (0-5) H* 12/20/19 14:10 CSF RBC 69 /mm3 (0-5) H 12/20/19 14:10 CSF RBC (1) 114 /mm3 (0-5) H 12/20/19 14:10 CSF Neutrophils % 80 % (0-6) H 12/20/19 14:10 CSF Lymphocytes % 1 % (40-80) L 12/20/19 14:10 CSF Monos/Macrophage % 19 % (15-45) 12/20/19 14:10 CSF Diff Comment Performed 12/20/19 14:10 CSF Glucose 32 mg/dL (40-70) L 12/20/19 14:10 CSF Total Protein 317 mg/dL (15-45) H 12/20/19 14:10 Gentamicin Trough Cancelled 12/21/19 19:00 Vancomycin Trough 20.0 ug/mL (10.0-20.0) 12/23/19 09:00 COVID-19 PCR Cancelled 12/21/19 13:27 Nasopharyn COVID-19 PCR Cancelled 12/21/19 13:27 SARS-CoV-2 Source Nasopharynx 12/20/19 11:42 SARS-CoV-2 (PCR) Undetected (Undetected) 12/20/19 11:42 Patient Race White 12/20/19 11:42 Patient Ethnicity See below 12/20/19 11:42 Path Cons Comment 12/20/19 14:10 Ref Test Method See comment 12/20/19 11:42 Ref Test Perform Site Cancelled 12/21/19 13:27
--- NOTE | 2019-12-24 14:50 | NUR.NOTE ---
Nursing Note: Patient watching t.v. from his bed and is completely asymptomatic.
[2019-12-24] MEDS: Acetaminophen 325 MG TAB PO (16:26)
[2019-12-24] MEDS: Ketorolac 30 MG/ML VIAL IVP (16:26)
[2019-12-24] MEDS: Enoxaparin 40 MG/0.4 ML SYR SC (22:29)
--- NOTE | 2019-12-24 22:51 | NUR.NOTE ---
Nursing Note: 22:16 Patient transferred from ICU to Med Surg Room No :231 with his belongings.
[2019-12-25 03:42] VITALS: BP 134/83; PULSE 64; RESP 17; TEMP 37; O2SAT 97
[2019-12-25] MEDS: Acetaminophen 325 MG TAB PO ×2 (04:02→08:35)
[2019-12-25 07:30] VITALS: BP 151/92; PULSE 60; RESP 17; TEMP 36.5; O2SAT 96
[2019-12-25 08:28] LABS: ALT 42 U/L (16-63); AST 31 U/L (15-37); Albumin 2.3 g/dL (3.4-5.0); Alkaline Phosphatase 62 U/L (46-116); Anion Gap 4.9 mmol/L (3-11); BUN 8 mg/dL (7-18); Bilirubin, Total 0.3 mg/dL (0.2-1.0); CO2 29.1 mmol/L (21.0-32.0); Calcium 8.3 mg/dL (8.5-10.1); Chloride 101 mmol/L (98-107); Glucose 102 mg/dL (74-106); Sodium 135 mmol/L (136-145)
[2019-12-25] MEDS: Folic Acid 1 MG TAB PO (08:30)
[2019-12-25] MEDS: Potassium Chloride 20 MEQ TABCR 40 MEQ PO (08:31)
[2019-12-25] MEDS: Multivitamin TAB 1 TAB PO (08:31)
[2019-12-25] MEDS: Thiamine 100 MG TAB PO (08:31)
[2019-12-25] MEDS: Pantoprazole 40 MG TABCR PO (08:31)
[2019-12-25] MEDS: Normal Saline Flush 10 ML SYR IVP (08:36)
--- NOTE | 2019-12-25 09:15 | W.PM.DS.N ---
Date of service: 12/25/19 Time of Service: 09:15 DS: Diagnosis Discharge Diagnosis (1) Gram-negative bacteremia: Status: Acute (2) Hypokalemia: Status: Acute (3) Meningitis: Status: Acute (4) Dog bite of left hand: Status: Acute Discharge Plan Disposition Patient Disposition: HOME Condition: Good Discharge Details Chief Complaint: Headache Clinical Impression: Meningitis Reason For Visit: MENINGITIS Admit Date/Time: 12/20/19 19:04 Admit Provider: Navneet Rockwell Attending Provider: Navneet Rockwell Primary Care Provider: Fer Forte ED Provider: Noel Jackson Hospital Course Hospital Course: This is a 59-year-old male with no past medical history who presented to the emergency department with complaints of headache and neck ache along with subjective feeling of fevers for the last 5 days. Headache and neck ache started out gradually then progressively worse; exacerbated by loud noises or movement of his neck. Evaluation emergency department included a CTA of his head and neck as well as routine labs and subsequently underwent lumbar puncture as well as MRI of the brain and cervical and thoracic spine. In summary he was diagnosed with bacterial meningitis with a Gram stain of his LP showing gram-negative rods. Patient was treated with ceftriaxone 2 g IV along with ampicillin 2 g IV and vancomycin 1.5 g IV. Blood cultures were obtained as well as cerebrospinal fluid cultures were sent and nasal pharyngeal swab for influenza and COVID-19 were obtained. Influenza swab was negative. Routine labs included a white count of 13,000 with a leftward shift including 10,000 neutrophils and an ESR of 27 with a CRP of 6.9. CMP was remarkable for hyponatremia with a sodium of 129 a potassium level 3.2 and a magnesium level 1.5. LFTs were normal. BUN and creatinine were normal at 12 and 0.76. Procalcitonin level was high at 2.7. CSF fluid was cloudy and colorless with 3200 white cells, 114 RBCs on the first sample and 69 RBCs on the final sample with a low CSF glucose of 32 and a high CSF protein of 317. Gram stain of the CSF showed many white blood cells and initially was reported as no bacteria seen but modified to indicate rare gram-negative rods. Subsequent MRI imaging of the brain cervical and thoracic spine was obtained in the MRI of the cervical and thoracic spine were unremarkable whereas the MRI of the brain showed enhancement of the toshia matter within the sulci in the region of the frontal right lobe concerning for meningitis but no intracranial abscess was seen. There are few scattered hyperintensities involving the white matter of both hemispheres that are nonspecific but possibly reflecting microvascular ischemic changes. He was admitted for empiric treatment of bacterial meningitis. Reportedly there were no ill contacts. His was notified of his diagnosis by the emergency room attending who is document that his is received prophylactic antibiotic through her PCP. Of note, he had incurred a dog bite to his left thumb 24 hours prior to the onset of his symptoms. He had several puncture sites along with generalized swelling and stiffness. The swelling resolved and his ROM normalized during the hospitalization. [place] [facility] [place] Pasteurella and capnocytophaga species were considered as possible etiologies of the meningitis. Antibiotics were changed to meropenem and vancomycin. His WBC count normalized. His ELIAS and stiff neck improved significantly. After further review, the gram stain of the CSF fluid excluded bacteria; initially reported as rare gram negative rods. Blood culture showed gram negative rods. No speciation or sensitivities known prior to discharge. Discharged on Augmentin BID for 7 days. F/U with PCP in 1 week Home Meds and New Rx's Prescriptions: New acetaminophen [Tylenol] 325 mg Tablet 325 - 650 mg PO Q4H PRN PRN (Reason: Pain Or Fever) Qty: 0 RF: 0 amoxicillin-pot clavulanate [Augmentin] 875-125 mg tablet 1 tab PO BID Qty: 14 RF: 0 Discharge Instructions Instructions: Animal Bite (GEN) Activity:: Activity as Tolerated Equipment/Supplies:: No Equipment Needed Diet:: As Tolerated DS: Summary Status at Discharge Functional status at discharge: independent ambulation Overall status at discharge: patient is progressing back to baseline Mental Status: mental status grossly normal Speech and Movement: speech and movement normal Mood: congruent mood Affect: normal affect Exam Const General: cooperative and no acute distress Orientation: alert and oriented x3 Neck Neck: normal visual inspection and full ROM Resp Effort & Inspection: normal respiratory effort Auscultation: clear to auscultation bilaterally Cardio Rate: regular rate Rhythm: regular rhythm Heart Sounds: S1 normal and S2 normal Extrem General: no pedal edema Hand/finger images: 1. closed puncture mcdonald on thumb w/o swelling, erythema or drainage. FROM Psych Mental Status: mental status grossly normal Speech and Movement: speech and movement normal Mood: congruent mood Affect: normal affect DS: Data Vitals/I&O Vitals and I&O: Vital Signs Temperature 36.5 C 12/25/19 07:30 Temperature Source Temporal Artery Scan 12/25/19 07:30 Pulse 60 12/25/19 07:30 Pulse Rhythm Regular 12/24/19 22:34 Pulse 72 12/20/19 22:20 Respiratory Rate 17 12/25/19 07:30 Respiratory Effort Non-Labored 12/24/19 22:34 Respiratory Depth Normal 12/24/19 22:34 Respiratory Pattern Normal 12/24/19 22:34 Blood Pressure 151/92 H 12/25/19 07:30 Blood Pressure Mean 99 12/24/19 16:56 Blood Pressure Position Supine 12/20/19 11:25 Pulse Oximetry 96 12/25/19 07:30 Oxygen Delivery Method Room Air 12/25/19 07:30 Oxygen Flow Rate 0 12/25/19 07:30 Pain Level 3 12/25/19 08:35 Comment 12/23/19 12:41 Intake & Output 12/24/19 12/24/19 12/25/19 11:59 23:59 11:59 Intake Total 680 / 1417 737 / 1417 100 / 100 Output Total 1600 / 3050 1450 / 3050 600 / 600 Balance -920 / -1633 -713 / -1633 -500 / -500 Weight 73.2 kg 72 kg Intake: IV 200 / 340 140 / 340 100 / 100 Oral 480 / 1077 597 / 1077 Output: Urine 1600 / 3050 1450 / 3050 600 / 600 Other: Urine Color Yellow Pale Light Hanane Yellow Urine Appearance Clear Clear Clear Urine Odor None Normal Normal Stool Size Moderate Stool Characteristics Soft Voiding Methods Urinal Toilet Toilet Data Completed and Pending Labs on day of discharge: Labs from last 24 hours 12/25/19 07:12 Sodium 135 L Potassium 4.0 D Chloride 101 Carbon Dioxide 29.1 Anion Gap 4.9 BUN 8 Creatinine 0.60 L Estimated GFR/1.73 m2 >= 60.00 Glucose 102 Calcium 8.3 L Total Bilirubin 0.3 AST 31 ALT 42 Alkaline Phosphatase 62 Total Protein 6.0 L Albumin 2.3 L Preliminary micro results at discharge 12/22/19 09:40 Blood Culture - Preliminary Blood NO GROWTH 48 HOURS 09/04/20 09:30 Blood Culture - Preliminary Blood NO GROWTH 48 HOURS 12/20/19 12:35 Blood Culture - Preliminary Blood Gram Negative Arnel 12/20/19 11:40 Blood Culture - Preliminary Blood Gram Negative Arnel 12/20/19 14:10 Body Fluid Culture - Preliminary Cerebrospinal Fluid PFSH Social History Smoking/Tobacco Use Status: Current every day Tobacco Type: cigarettes Drug use: Occasionally Substance use type: marijuana Do you feel safe at home: Yes Do you feel safe in your relationship?: Yes
--- NOTE | 2019-12-25 19:07 | PDOC.CMDIS ---
- If Service Date Differs Date of service: 12/25/19 Time of Service: 19:07 LACE Index Scoring Tool - Questions: Length of Stay (in days): 4 - 6 Acuity (Admit via E.D.?): Yes E.D. Visits: 1 - Answers: Total Score: 8 Risk of Readmission: Low Risk Care Management Discharge Reason for Hospitalization: Meningitis Discharge Plan: Garry will return home with no services. He will follow up with his PCP and discharge plan of care and transport via private vehicle with his . CM will continue to assess for discharge needs and provide support to patient and family. Patient/Family Education Needs: Discharge plan, limitations, follow up plan, Ask Me Three
== END 2019-12-25 10:40 | disposition home or self-care (01) | DRG 95 ==
LOC: ER 19:05 → ICU 19:55 → MS 12-24 22:08
PROVIDERS: Family Medicine; Internal Medicine; Admitting Provider Internal Medicine; Emergency Provider Student in an Organized Health Care Education/Training Program; PCP Family Medicine; Visit Provider Internal Medicine
DX: G00.9 Bacterial meningitis, unspecified (principal); E87.1 Hypo-osmolality and hyponatremia; R78.81 Bacteremia; Z11.59 Encounter for screening for other viral diseases; S61.052A Open bite of left thumb without damage to nail, initial encounter; W54.0XXA Bitten by dog, initial encounter; E87.6 Hypokalemia; E83.42 Hypomagnesemia; F17.210 Nicotine dependence, cigarettes, uncomplicated; R73.9 Hyperglycemia, unspecified; F10.10 Alcohol abuse, uncomplicated
CPT/HCPCS: 36410; 36415; 62270; 70496; 70498; 70553; 80048; 80053; 82945; 84145; 85652; 87040; 87077; 87449; 89050; 89051; 96365; 96366; 96367; 96368; 96375; 99223; 99232; 99233; 99239; 99285; 99291; J1650; U0003; 71046; 72156; 72157; 76700; 80170; 80202; 81003; 81015; 83036; 83605; 83735; 83880; 84157; 84484; 85025; 85610; 85730; 86140; 87070; 87205; 93306; J0131; J0290; J0696; J1100; J1885; J2405; J3370; J3475; J3480; J3490

== ENCOUNTER 2020-01-01 22:08 | Outpatient (REF) | payer OTHER, SELFPAY ==
[2020-01-01 21:30] LABS: Abs Immature Grans 0.02 10^3/uL (0.0-0.06); Absolute Basophil Count 0.15 10^3/uL (0.0-0.2); Absolute Eosinophil Count 0.31 10^3/uL (0.0-0.7); Absolute Monocyte Count 1.27 10^3/uL (0.1-0.8); Absolute Neutrophil Count 5.21 10^3/uL (1.2-6.7); Basophils % 1.6; Eosinophils % 3.2; HCT 36.3 % (40.0-50.0); Immature Grans % 0.2; MCHC 33.1 % (32.0-36.0); MCV 90.8 fL (80-95); MPV 10.9 fL (8.0-11.0); Monocytes % 13.1; Neutrophils % 53.9; Nucleated RBC 0 %; RDW 13.2 % (11.8-14.1); RDW-SD 44.1 fL; WBC 9.66 10^3/uL (4.4-10.8)
[2020-01-01 21:32] LABS: Platelet Count 521 10^3/uL (130-400)
[2020-01-01 22:07] LABS: ALT 93 U/L (16-63); AST 29 U/L (15-37); Albumin 3.5 g/dL (3.4-5.0); Alkaline Phosphatase 101 U/L (46-116); Anion Gap 10.5 mmol/L (3-11); BUN 15 mg/dL (7-18); Bilirubin, Total 0.3 mg/dL (0.2-1.0); CO2 25.5 mmol/L (21.0-32.0); CREATININE 0.66 mg/dL (0.70-1.30); Calcium 8.7 mg/dL (8.5-10.1); Chloride 101 mmol/L (98-107); Glucose 105 mg/dL (74-106); Sodium 137 mmol/L (136-145); Total Protein 7.1 g/dL (6.4-8.2)
--- NOTE | 2020-01-18 13:51 | NUR.NOTE ---
contacted son Garry and made him aware of mother's condition at this time. Advised him that we would call frequently with updates.
== END 2020-01-01 22:28 ==
LOC: LBN 22:08
PROVIDERS: PCP Family Medicine; Visit Provider Nurse Practitioner Family
DX: G00.9 Bacterial meningitis, unspecified (principal)
CPT/HCPCS: 80053; 85025